=== PATIENT | female | born 1960 | race Caucasian/White ===

== ENCOUNTER 2025-03-04 06:45 | Outpatient (CLI) | payer MEDICARE, SELFPAY | END 2025-03-04 06:46 | disposition home or self-care (01) | LOC: AMB 03-05 11:00 | PROVIDERS: Visit Provider Family Medicine | DX: R10.9 Unspecified abdominal pain (principal) | CPT/HCPCS: A0425; A0433 ==

== ENCOUNTER 2025-03-04 07:14 | Emergency (ER) | payer MEDICARE, SELFPAY ==
[2025-03-04] VITALS (19 sets, daily range): BP systolic 127–167; BP diastolic 64–99; PULSE 91–108; RESP 16–18; TEMP 36.3; O2SAT 83–100; BMI 23.0
--- NOTE | 2025-03-04 07:36 | CRLHL7_ITS ---
For Patients: As a result of the Century Cures Act, medical imaging exams and procedure reports are released immediately into your electronic medical record. You may view this report before your referring provider. If you have questions, please contact your health care provider. INDICATION: Left lower quadrant abdominal pain COMPARISON: The most recent study of 10/19/2017. TECHNIQUE: CT examination of the abdomen and pelvis was performed following the uneventful intravenous administration of 64 cc of Isovue 370. Thin section axial images were obtained from the lung bases through the pubic symphysis. Oral contrast was not administered. Please note that all CT scans at this facility use dose modulation, iterative reconstruction, and/or weight-based dosing when appropriate to reduce radiation dose to as low as reasonably achievable. FINDINGS: LUNG BASES: Linear basilar opacities likely due to atelectasis or scarring.The heart size is normal at the lung bases. LIVER/BILIARY SYSTEM:Normal-sized liver. No focal mass. Surgically absent gallbladder. Mildly prominent biliary ductal system similar to the prior study likely reservoir phenomena from prior cholecystectomy. ADRENALS: Normal KIDNEYS, URETERS and BLADDER:Normal size kidneys. Left renal cyst. No hydronephrosis or hydroureter. The bladder is poorly seen due to streak artifact from a right hip arthroplasty and due to underdistention SPLEEN:Normal appearance. PANCREAS: Appears normal. RETROPERITONEUM and MESENTERY: There is no mass, adenopathy or aortic aneurysm. Atherosclerotic vascular calcification GASTROINTESTINAL SYSTEM: Thickening of the gastric corpus. There appears to be an abrupt transition between normal mucosa in the fundus and the area of thickening. See for example series 2, image 32. This could be neoplastic. Appropriate follow-up is advised. GI system otherwise remarkable for mild fecal retention and scattered diverticulosis. PELVIS: No mass, adenopathy or free fluid. OSSEOUS STRUCTURES and ABDOMINAL WALL: There is an age-appropriate appearance of the osseous structures.No significant abdominal wall defect. OTHER: No free fluid or free air. IMPRESSION: 1. Thickening of the gastric corpus. There appears to be abrupt transition between normal mucosa in the fundus and the Edwin thickening in the corpus. This could be neoplastic. Appropriate follow-up is advised. 2. Otherwise, no other potential specific visible cause for pain on this exam. 3. There are other incidental nonacute appearing findings as discussed in the body of the report. Please note that all CT scans at this facility use dose modulation, iterative reconstruction, and/or weight-based dosing when appropriate to reduce radiation dose to as low as reasonably achievable. Dictated by Camacho Lin MD @ 03/04/2025 8:56:24 AM (Electronically Signed)
--- NOTE | 2025-03-04 07:42 | ED_ITS ---
HPI - General Adult General Chief complaint: Abdominal Pain <Shannon Farah MD - Last Filed: 03/06/25 00:00> Stated complaint: abdominal pain <Shannon Farah MD - Last Filed: 03/06/25 00:00> Time Seen by Provider: 03/04/25 07:25 <Shannon Farah MD - Last Filed: 03/06/25 00:00> Source: patient and EMS <Shannon Farah MD - Last Filed: 03/06/25 00:00> Mode of arrival: EMS <Shannon Farah MD - Last Filed: 03/06/25 00:00> History of Present Illness HPI narrative: 64-year-old female presents the emergency department with diffuse abdominal pain. She is a suboptimal historian and is not very participatory of interview today. Patient was staying at her boyfriend's home, she typically lives and gets her medical care in [place]. She started having abdominal pain about 5 hours prior to presentation, initially thought she could be constipated as she is prone to this. She does take senna daily. She denies abdominal trauma. No vomiting. She had 4 very small bowel movements overnight that did not improve her symptoms. She thinks she might need an enema. On specific questioning, she does tell me that she had a bowel obstruction a couple of months ago and it sounds as though based on her description she was treated surgically. She cannot tell me the details of this encounter and it is not in our health system. We will have to attempt to obtain some records. No fever. No sick contacts. No diarrhea. No bloody stools. Denies a history of ischemic bowel, she is a nonsmoker. She did not try any pain medications prior to coming to the ED. in the ambulance, she was given Zofran and 150 mcg of fentanyl which she reports are not helping her pain. She reports her past medical history is notable for hypertension, depression. She cannot list her medications for me. We do have some scanned in from outside records but she will not confirm if these are correct or not. Denies excessive alcohol use, denies history of pancreatitis. She has had a prior cholecystectomy and appendectomy though she cannot give me details of those. Denies any pelvic surgeries. ROS was quite unreliable due to her poor participation but EMS did not note any other alarming symptoms. She told them that the pain was located in the left lower quadrant, she reports diffuse abdominal pain for me. Achy and constant. <Shannon Farah MD - Last Filed: 03/06/25 00:00> Related Data Home medications: Home Medications ?Medication ?Instructions ?Recorded ?Confirmed aluminum hydrox-magnesium carb 160 1 tab PO QID PRN heartburn 03/04/25 03/04/25 mg-105 mg chewable tablet (Acid Gone Antacid Extra Strength) aluminum-mag hydroxide-simethicone 15 ml PO Q6H PRN 03/04/25 03/04/25 200 mg-200 mg-20 mg/5 mL oral susp (Tania-Lanta) [id number]-dgiomspe 250 2 tab PO Q8H PRN 03/04/25 03/04/25 mg-250 mg-65 mg tablet (Excedrin Extra Strength) bisacodyl 10 mg rectal suppository 10 mg MA DAILY PRN constipation 03/04/25 03/04/25 epinephrine 0.3 mg/0.3 mL 0.3 ml subcut .prn anaphylaxis 03/04/25 03/04/25 injection, auto-injector famotidine 20 mg tablet 20 mg PO DAILY 03/04/25 03/04/25 fluoxetine 40 mg capsule 40 mg PO DAILY 03/04/25 03/04/25 hydrochlorothiazide 12.5 mg tablet 12.5 mg PO DAILY 03/04/25 03/04/25 melatonin 3 mg tablet 5 mg PO DAILY PRN insomnia 03/04/25 03/04/25 mometasone 0.1 % topical cream 1 applic topical BID 03/04/25 03/04/25 omeprazole 20 mg capsule,delayed 20 mg PO QPM 03/04/25 03/04/25 release sennosides 8.6 mg tablet (senna) 8.6 mg PO BID PRN constipation 03/04/25 03/04/25 Previous Rx's ?Medication ?Instructions ?Recorded omeprazole 40 mg capsule,delayed 40 mg PO DAILY #20 caps 03/04/25 release <Shannon Farah MD - Last Filed: 03/06/25 00:00> Allergies/adverse reactions: Allergies Allergy/AdvReac Type Severity Reaction Status Date / Time acetaminophen Allergy Unknown Verified 03/04/25 07:27 bee venom protein (honey bee) Allergy Unknown Verified 03/04/25 07:27 hydromorphone Allergy Unknown Verified 03/04/25 07:27 ibuprofen Allergy Unknown Verified 03/04/25 07:27 Influenza Virus Vaccines Allergy Unknown Verified 03/04/25 07:27 NSAIDS (Non-Steroidal Allergy Unknown Verified 03/04/25 07:27 Anti-Inflamma olanzapine Allergy Unknown Verified 03/04/25 07:27 <Shannon Farah MD - Last Filed: 03/06/25 00:00> [facility] Social History: Social History Smoking Status: Never smoker Do you use any of these nicotine containing products: None Second hand tobacco smoke exposure: No How often do you have a drink containing alcohol: 2-3 times a week How many standard drinks containing alcohol do you have on a typical day: 1 or 2 AUDIT-C Alcohol total score: 3 Non-prescribed substance use: denies use <Shannon Farah MD - Last Filed: 03/06/25 00:00> Exam Narrative: Exam Narrative: Constitutional: Appears well-developed and well-nourished. Alert. As a into the room the patient is loudly talking on a cordless phone. She politely and her conversation. Conversant. Non toxic. Says she is feeling much better after meds given by Dr. Farah. HENT: Head: Atraumatic. Nose: Nose normal. Mouth/Throat: Oral mucosa is clear and moist. no trismus. Pharynx normal. Tonsils symmetric. No tonsillar enlargement, erythema, or exudate. Eyes: Conjunctivae normal. EOM normal. Pupils equal, round, and reactive to light. No scleral icterus. Neck: Normal range of motion. Neck supple. No tracheal deviation present. Cardiovascular: Normal rate, regular rhythm. No gallop. No friction rub. No murmur heard. Symmetric radial artery pulses Pulmonary/Chest: Effort normal. No stridor. No respiratory distress. No wheezes. No rales. No rhonchi . No tenderness. Abdominal: Soft. Bowel sounds normal. No distension. No mass. No tenderness at this time. No rebound. No guarding. Musculoskeletal: RUE: Normal range of motion. No tenderness. No deformity LUE: Normal range of motion. No tenderness. No deformity RLE: Normal range of motion. No edema. No tenderness. No deformity LLE: Normal range of motion. No edema. No tenderness. No deformity Neurological: Alert and oriented to person, place, and time. Normal strength. CN II-VII intact. No sensory deficit. GCS eye subscore is 4. GCS verbal subscore is 5. GCS motor subscore is 6. Normal coordination Skin: Skin is warm and dry. No rash noted. No pallor. Normal capillary refill. Psychiatric: Normal mood. Normal affect. <Klaus Mccullough MD - Last Filed: 03/04/25 19:18> Const: Vital Signs, click to edit/add: Vital Signs - 24 hr 03/04/25 07:20 03/04/25 07:44 03/04/25 07:58 Temperature 97.3 F L Pulse Rate [Pulse Oximeter] 100 105 H Respiratory Rate 18 18 Blood Pressure [Le ft Upper Arm] 150/99 H 159/81 H Pulse Oximetry 96 98 96 Oxygen Delivery Me thod Room Air 03/04/25 08:00 03/04/25 08:02 03/04/25 08:41 Temperature Pulse Rate [Pulse Oximeter] 108 H Respiratory Rate 18 Blood Pressure [Le ft Upper Arm] 167/82 H Pulse Oximetry 99 97 94 Oxygen Delivery Me thod 03/04/25 09:00 03/04/25 09:02 03/04/25 09:30 Temperature Pulse Rate [Pulse Oximeter] 100 91 Respiratory Rate 16 16 Blood Pressure [Le ft Upper Arm] 153/64 H 134/70 Pulse Oximetry 100 98 99 Oxygen Delivery Me thod Room Air Room Air Room Air 03/04/25 09:32 03/04/25 10:00 03/04/25 10:02 Temperature 97.4 F L Pulse Rate [Pulse Oximeter] 103 H Respiratory Rate Blood Pressure [Le ft Upper Arm] 127/73 Pulse Oximetry 99 98 99 Oxygen Delivery Nc thod Room Air Room Air Room Air 03/04/25 10:30 03/04/25 10:32 03/04/25 11:00 Temperature Pulse Rate [Pulse Oximeter] 103 H 103 H Respiratory Rate 16 Blood Pressure [Le ft Upper Arm] 129/66 130/67 Pulse Oximetry 97 97 97 Oxygen Delivery Me thod Room Air Room Air Room Air 03/04/25 11:01 03/04/25 11:30 03/04/25 11:35 Temperature Pulse Rate [Pulse Oximeter] Respiratory Rate Blood Pressure [Le ft Upper Arm] Pulse Oximetry 98 97 83 L Oxygen Delivery Me thod 03/04/25 12:00 Temperature Pulse Rate [Pulse Oximeter] Respiratory Rate Blood Pressure [Le ft Upper Arm] Pulse Oximetry 98 Oxygen Delivery Me thod <Shannon Farah MD - Last Filed: 03/06/25 00:00> Vital Signs, click to edit/add: Vital Signs - 24 hr 03/04/25 07:20 03/04/25 07:44 03/04/25 07:58 Temperature 97.3 F L Pulse Rate [Pulse Oximeter] 100 105 H Respiratory Rate 18 18 Blood Pressure [Le ft Upper Arm] 150/99 H 159/81 H Pulse Oximetry 96 98 96 Oxygen Delivery Me thod Room Air 03/04/25 08:00 03/04/25 08:02 03/04/25 08:41 Temperature Pulse Rate [Pulse Oximeter] 108 H Respiratory Rate 18 Blood Pressure [Le ft Upper Arm] 167/82 H Pulse Oximetry 99 97 94 Oxygen Delivery Me thod 03/04/25 09:00 03/04/25 09:02 03/04/25 09:30 Temperature Pulse Rate [Pulse Oximeter] 100 91 Respiratory Rate 16 16 Blood Pressure [Le ft Upper Arm] 153/64 H 134/70 Pulse Oximetry 100 98 99 Oxygen Delivery Me thod Room Air Room Air Room Air 03/04/25 09:32 03/04/25 10:00 03/04/25 10:02 Temperature 97.4 F L Pulse Rate [Pulse Oximeter] 103 H Respiratory Rate Blood Pressure [Le ft Upper Arm] 127/73 Pulse Oximetry 99 98 99 Oxygen Delivery Me thod Room Air Room Air Room Air 03/04/25 10:30 03/04/25 10:32 03/04/25 11:00 Temperature Pulse Rate [Pulse Oximeter] 103 H 103 H Respiratory Rate 16 Blood Pressure [Le ft Upper Arm] 129/66 130/67 Pulse Oximetry 97 97 97 Oxygen Delivery Me thod Room Air Room Air Room Air 03/04/25 11:01 03/04/25 11:30 03/04/25 11:35 Temperature Pulse Rate [Pulse Oximeter] Respiratory Rate Blood Pressure [Le ft Upper Arm] Pulse Oximetry 98 97 83 L Oxygen Delivery Me thod 03/04/25 12:00 Temperature Pulse Rate [Pulse Oximeter] Respiratory Rate Blood Pressure [Le ft Upper Arm] Pulse Oximetry 98 Oxygen Delivery Me thod <Klaus Mccullough MD - Last Filed: 03/04/25 19:18> Documenting provider has reviewed patient's vital signs: yes <Shannon Farah MD - Last Filed: 03/06/25 00:00> Common normals: oriented x3 <Shannon Farah MD - Last Filed: 03/06/25 00:00> Other: Mild distress due to pain. Poor participation. <Shannon Faarh MD - Last Filed: 03/06/25 00:00> HENMT: Common normals: normocephalic, moist oral mucous membranes and oropharynx normal <Shannon Farah MD - Last Filed: 03/06/25 00:00> Head and scalp: normocephalic <Shannon Farah MD - Last Filed: 03/06/25 00:00> Face and sinus: normal facial exam <MD Spring Daugherty Last Filed: 03/06/25 00:00> Mouth: oral and palatal mucosa normal <MD Spring Daugherty Last Filed: 03/06/25 00:00> Eye: Common normals: conjunctivae normal <MD Spring Daugherty Last Filed: 03/06/25 00:00> General eye: normal appearance of both eyes <MD Spring Daugherty Last Filed: 03/06/25 00:00> Conjunctiva: conjunctiva(e) normal <MD Spring Daugherty Last Filed: 03/06/25 00:00> Neck & C-Spine: General: normal visual inspection <MD Spring Daugherty Last Filed: 03/06/25 00:00> Resp: Common normals: normal respiratory effort and clear to auscultation bilaterally <Shannon Farah MD - Last Filed: 03/06/25 00:00> Effort & inspection: able to speak in complete sentences <MD Spring Daugherty Last Filed: 03/06/25 00:00> Auscultation: clear to auscultation bilaterally <MD Spring Daugherty Last Filed: 03/06/25 00:00> Cardio: Common normals: regular rate, regular rhythm, S1 normal heart sound, S2 normal heart sound and no murmurs <MD Spring Daugherty Last Filed: 03/06/25 00:00> Rate: regular rate <MD Spring Daugherty Last Filed: 03/06/25 00:00> Rhythm: regular rhythm <MD Spring Daugherty Last Filed: 03/06/25 00:00> Heart sounds: S1 normal and S2 normal <MD Spring Daugherty Last Filed: 03/06/25 00:00> GI: Other: Abdomen seems mildly distended. Bowel sounds sound normoactive throughout to me though. She is diffusely tender but with no obvious rebound tenderness or guarding. No obvious mass. Liver and spleen do not seem enlarged. No recent surgical scars. <Shannon Farah MD - Last Filed: 03/06/25 00:00> : Common normals: no CVA tenderness <MD Spring Daugherty Last Filed: 03/06/25 00:00> Bladder/kidney exam: no CVA tenderness <MD Spring Daugherty Last Filed: 03/06/25 00:00> Back & Pelvis: Common normals: no CVA tenderness <MD Spring Daugherty Last Filed: 03/06/25 00:00> Extremity: Common normals: normal to inspection, normal capillary refill and no pedal edema <MD Spring Daugherty Last Filed: 03/06/25 00:00> Neuro: Common normals: oriented x3 and moves all extremities <MD Spring Daugherty Last Filed: 03/06/25 00:00> Speech: speech normal <MD Spring Daugherty Last Filed: 03/06/25 00:00> Psych: Insight: fair <Shannon Farah MD - Last Filed: 03/06/25 00:00> Judgement: fair <Shannon Farah MD - Last Filed: 03/06/25 00:00> Skin: Common normals: no rashes or lesions noted <Shannon Farah MD - Last Filed: 03/06/25 00:00> General skin exam: no rashes or lesions noted <Shannon Farah MD - Last Filed: 03/06/25 00:00> Course Course ED Course: 64-year-old female with abdominal pain, history of bowel obstructions, patient reporting suspected constipation. I am suspicious that this is more than a simple case of constipation as she has required so much narcotic medication and her symptoms are not improving. Full place peripheral IV, obtain typical intra-abdominal labs. 2 mg of morphine plus to q.2 hours ordered. Alina p.r.n.. Recommend CT of the abdomen and pelvis prior to proceeding with any type of bowel regimen. 500 mL of normal saline bolus x1. Anticipate handing over care to oncoming day shift partner. Will ask nursing team to try to locate her outside records. <Shannon Farah MD - Last Filed: 03/06/25 00:00> Vital Signs Vital signs: Initial Vital Signs Temperature 97.3 F L 03/04/25 07:20 Temperature Source Temporal Artery Scan 03/04/25 07:20 Pulse Rate 100 03/04/25 07:20 Respiratory Rate 18 03/04/25 07:20 Blood Pressure 150/99 H 03/04/25 07:20 Blood Pressure Mean 116 H 03/04/25 07:20 Blood Pressure Position Right Lateral 03/04/25 07:20 Pulse Oximetry 96 03/04/25 07:20 Oxygen Delivery Method Room Air 03/04/25 07:20 Vital Signs Temperature 97.3 F L 03/04/25 07:20 Pulse Rate 100 03/04/25 07:20 Respiratory Rate 18 03/04/25 07:20 Blood Pressure 150/99 H 03/04/25 07:20 Pulse Oximetry 96 03/04/25 07:20 Oxygen Delivery Method Room Air 03/04/25 07:20 Temperature 97.4 F L 03/04/25 10:00 Pulse Rate 103 H 03/04/25 11:00 Respiratory Rate 16 03/04/25 11:00 Blood Pressure 130/67 03/04/25 11:00 Pulse Oximetry 98 03/04/25 12:00 Oxygen Delivery Method Room Air 03/04/25 11:00 <Shannon Farah MD - Last Filed: 03/06/25 00:00> Initial Vital Signs Temperature 97.3 F L 03/04/25 07:20 Temperature Source Temporal Artery Scan 03/04/25 07:20 Pulse Rate 100 03/04/25 07:20 Respiratory Rate 18 03/04/25 07:20 Blood Pressure 150/99 H 03/04/25 07:20 Blood Pressure Mean 116 H 03/04/25 07:20 Blood Pressure Position Right Lateral 03/04/25 07:20 Pulse Oximetry 96 03/04/25 07:20 Oxygen Delivery Method Room Air 03/04/25 07:20 Vital Signs Temperature 97.3 F L 03/04/25 07:20 Pulse Rate 100 03/04/25 07:20 Respiratory Rate 18 03/04/25 07:20 Blood Pressure 150/99 H 03/04/25 07:20 Pulse Oximetry 96 03/04/25 07:20 Oxygen Delivery Method Room Air 03/04/25 07:20 Temperature 97.4 F L 03/04/25 10:00 Pulse Rate 103 H 03/04/25 11:00 Respiratory Rate 16 03/04/25 11:00 Blood Pressure 130/67 03/04/25 11:00 Pulse Oximetry 98 03/04/25 12:00 Oxygen Delivery Method Room Air 03/04/25 11:00 <Klaus Mccullough MD - Last Filed: 03/04/25 19:18> Medications Administered Medications: Discontinued Medications Generic Name Dose Route Start Last Admin Trade Name Freq PRN Reason Stop Dose Admin Sodium Chloride 500 mls @ 500 mls/hr 03/04/25 07:36 03/04/25 11:00 0.9 % Sodium Chloride 500 Ml IV 03/04/25 08:35 500 mls/hr .Q1H ONE Infusion Morphine Sulfate 2 mg 03/04/25 07:38 03/04/25 07:49 Morphine 2 Mg/Ml Inj IVP 03/04/25 07:39 2 mg ONCE ONE Administration <Shannon Farah MD - Last Filed: 03/06/25 00:00> Discontinued Medications Generic Name Dose Route Start Last Admin Trade Name Lianne PRN Reason Stop Dose Admin Sodium Chloride 500 mls @ 500 mls/hr 03/04/25 07:36 03/04/25 11:00 0.9 % Sodium Chloride 500 Ml IV 03/04/25 08:35 500 mls/hr .Q1H ONE Infusion Morphine Sulfate 2 mg 03/04/25 07:38 03/04/25 07:49 Morphine 2 Mg/Ml Inj IVP 03/04/25 07:39 2 mg ONCE ONE Administration <Klaus Mccullough MD - Last Filed: 03/04/25 19:18> Medical Decision Making MDM Narrative Medical decision making narrative: Presented to the Emergency Department with left-sided/left upper quadrant abdominal pain. The differential diagnosis of abdominal pain includes: Appendicitis, Bowel Obstruction, Ulcer, Ischemia, Cholecystitis, Diverticulitis, Pancreatitis, UTI, kidney stone, Enteritis/Colitis, amongst many other etiologies. She does have a history of frequent visits to the [place] ER for abdominal pain and actually has a treatment plan for when she arrives in [place]. Being on aware of this she had pain meds and imaging ordered by Dr. Farah on the shift mechanic. Laboratory testing does not reveal a cause for the patient's pain. CT imaging does not show any emergent surgical finding such as bowel obstruction, diverticulitis, perforation, abscess, appendicitis. However CT does show evidence for wall thickening of the stomach. Differential this would include gastritis, ulcer, as well as malignancy, among others. Discussed this with the patient in detail and she will start on a PPI beginning today and I recommend close outpatient follow-up with her doctors in [place] to arrange an endoscopy to be done within the next couple of weeks. The exact etiology of the abdominal pain is not clear at this time, however suspect possible gastritis.. No life threatening cause or need for emergent surgery or hospital admission is detected today. The patient was advised that if symptoms do not completely resolve within another 12-24 hours re-evaluation with primary care or return to the ED is indicated. The patient also understands that if they worsen, they should return to the ER right away. I discussed the uncertainty about the diagnosis and answered the patient's questions. Abdominal pain return precautions discussed. <Klaus Mccullough MD - Last Filed: 03/04/25 19:18> Lab Data Lab results reviewed: Yes I reviewed the patient's lab results <Shannon Farah MD - Last Filed: 03/06/25 00:00> Lab results narrative: Labs quite reassuring. No significant leukocytosis, elevation of CRP, anemia, electrolyte abnormalities, renal impairment, pancreatitis or liver enzyme abnormality. <Shannon Farah MD - Last Filed: 03/06/25 00:00> Labs: Lab Results 03/04/25 Range/Units 07:53 WBC 7.62 (4.50-11.00) K/uL RBC 4.08 (4.00-5.20) m/uL Hgb 12.8 (12.0-16.0) gm/dL Hct 37.1 (33.0-51.0) % MCV 91 (80-100) fL MCH 31 (26-34) pg MCHC 35 (32-36) gm/dL RDW Coeff of Adam 12.7 (11.5-15.5) % Plt Count 260 (140-440) K/uL Neut % (Auto) 90.1 H (42.0-72.0) % Lymph % (Auto) 6.2 L (20-44) % [place] % (Auto) 2.4 (0.0-11.0) % Eos % (Auto) 0.7 (0.0-7.0) % Baso % (Auto) 0.3 (0.0-3.0) % Neut # (Auto) 6.90 (1.7-7.0) K/uL Lymph # (Auto) 0.50 L (0.90-2.90) K/uL [place] # (Auto) 0.20 (0.00-0.90) K/UL Eos # (Auto) 0.05 (0.00-0.50) K/uL Baso # (Auto) 0.02 (0.00-0.30) K/uL Abs Immat Gran (auto) 0.02 (0.00-0.30) K/uL Imm/Tot Granulo (auto) 0.3 % Sodium 138 (135-149) mmol/L Potassium 4.0 (3.6-5.1) mmol/L Chloride 104 (96-114) mmol/L Carbon Dioxide 20 (20-32) mmol/L Anion Gap 14 (7-15) mEq/L BUN 12 (7-30) mg/dL Creatinine 0.7 (0.5-1.5) mg/dL Estimated Creat Clear 48.25 Estimated GFR 98 ml/min Glucose 104 (60-115) mg/dL Lactate 1.2 (0.5-1.9) mmol/L Calcium 9.1 (8.4-10.6) mg/dL Total Bilirubin 0.4 (0.1-1.5) mg/dL AST 35 (12-35) U/L ALT 17 (4-35) U/L Alkaline Phosphatase 78 (40-150) U/L C-Reactive Protein < 0.5 L (0.5-1.0) mg/dL Total Protein 7.5 (6.0-8.3) g/dL Albumin 4.6 (3.3-5.0) g/dL Lipase 149 (23-300) U/L <Shannon Farah MD - Last Filed: 03/06/25 00:00> Lab Results 03/04/25 Range/Units 07:53 WBC 7.62 (4.50-11.00) K/uL RBC 4.08 (4.00-5.20) m/uL Hgb 12.8 (12.0-16.0) gm/dL Hct 37.1 (33.0-51.0) % MCV 91 (80-100) fL MCH 31 (26-34) pg MCHC 35 (32-36) gm/dL RDW Coeff of Adam 12.7 (11.5-15.5) % Plt Count 260 (140-440) K/uL Neut % (Auto) 90.1 H (42.0-72.0) % Lymph % (Auto) 6.2 L (20-44) % [place] % (Auto) 2.4 (0.0-11.0) % Eos % (Auto) 0.7 (0.0-7.0) % Baso % (Auto) 0.3 (0.0-3.0) % Neut # (Auto) 6.90 (1.7-7.0) K/uL Lymph # (Auto) 0.50 L (0.90-2.90) K/uL [place] # (Auto) 0.20 (0.00-0.90) K/UL Eos # (Auto) 0.05 (0.00-0.50) K/uL Baso # (Auto) 0.02 (0.00-0.30) K/uL Abs Immat Gran (auto) 0.02 (0.00-0.30) K/uL Imm/Tot Granulo (auto) 0.3 % Sodium 138 (135-149) mmol/L Potassium 4.0 (3.6-5.1) mmol/L Chloride 104 (96-114) mmol/L Carbon Dioxide 20 (20-32) mmol/L Anion Gap 14 (7-15) mEq/L BUN 12 (7-30) mg/dL Creatinine 0.7 (0.5-1.5) mg/dL Estimated Creat Clear 48.25 Estimated GFR 98 ml/min Glucose 104 (60-115) mg/dL Lactate 1.2 (0.5-1.9) mmol/L Calcium 9.1 (8.4-10.6) mg/dL Total Bilirubin 0.4 (0.1-1.5) mg/dL AST 35 (12-35) U/L ALT 17 (4-35) U/L Alkaline Phosphatase 78 (40-150) U/L C-Reactive Protein < 0.5 L (0.5-1.0) mg/dL Total Protein 7.5 (6.0-8.3) g/dL Albumin 4.6 (3.3-5.0) g/dL Lipase 149 (23-300) U/L <Klaus Mccullough MD - Last Filed: 03/04/25 19:18> Imaging Data CT scan - abdomen: Attestation: I have reviewed the pertinent imaging results. <Shannon Farah MD - Last Filed: 03/06/25 00:00> My impression: No obvious obstruction, perforation or large mass. Does have some mild constipation. <Shannon Farah MD - Last Filed: 03/06/25 00:00> Radiologist's impression: IMPRESSION: 1. Thickening of the gastric corpus. There appears to be abrupt transition between normal mucosa in the fundus and the Edwin thickening in the corpus. This could be neoplastic. Appropriate follow-up is advised. 2. Otherwise, no other potential specific visible cause for pain on this exam. 3. There are other incidental nonacute appearing findings as discussed in the body of the report. Please note that all CT scans at this facility use dose modulation, iterative reconstruction, and/or weight-based dosing when appropriate to reduce radiation dose to as low as reasonably achievable. Dictated by Camacho Lin MD @ 03/04/2025 8:56:24 AM <Shannon Farah MD - Last Filed: 03/06/25 00:00> Discharge Plan Discharge Clinical Impression: Abdominal pain <Shannon Farah MD - Last Filed: 03/06/25 00:00> Patient Disposition: Home, Self-Care <Shannon Farah MD - Last Filed: 03/06/25 00:00> Condition: Stable <Shannon Farah MD - Last Filed: 03/06/25 00:00> Instructions: Gastritis (DC), Diet for Stomach Ulcers and Gastritis (ED), Abdominal Pain (ED) <Shannon Farah MD - Last Filed: 03/06/25 00:00> Additional Instructions: As we discussed, continue on your regular medications including your laxatives and stool softeners. Please start on the new medication for stomach acid (omeprazole). Take it every day. It is very important for you to follow-up with your regular doctor within 5-7 days for a recheck. Tell your doctor you had a CT scan here in the ER in [place]. Tell your doctor that the CT scan shows thickening of the wall of your stomach. Your doctor can set you up for an endoscopy (camera down into your stomach) to see why the wall of your stomach is thickened. It could be thickened because of acid dickey and ulcers. However, we need to make sure there is no cancer. <Shannon Farah MD - Last Filed: 03/06/25 00:00> Prescriptions: New omeprazole 40 mg capsule,delayed release(DR/EC) 40 mg PO DAILY Qty: 20 2RF No Action sennosides [senna] 8.6 mg tablet 8.6 mg PO BID PRN (Reason: constipation) omeprazole 20 mg capsule,delayed release(DR/EC) 20 mg PO QPM mometasone 0.1 % cream 1 applic topical BID melatonin 3 mg tablet 5 mg PO DAILY PRN (Reason: insomnia) fluoxetine 40 mg capsule 40 mg PO DAILY famotidine 20 mg tablet 20 mg PO DAILY epinephrine 0.3 mg/0.3 mL auto-injector 0.3 ml subcut .prn hydrochlorothiazide 12.5 mg tablet 12.5 mg PO DAILY bisacodyl 10 mg suppository 10 mg MA DAILY PRN (Reason: constipation) alum-mag hydroxide-simeth [Tania-Lanta] 200-200-20 mg/5 mL suspension 15 ml PO Q6H PRN Acid Gone Antacid E.Strength 160-105 mg tablet,chewable 1 tab PO QID PRN (Reason: heartburn) Excedrin Extra Strength 250-250-65 mg tablet 2 tab PO Q8H PRN <Shannon Farah MD - Last Filed: 03/06/25 00:00> Follow Up/Referrals: Provider,Not a Local [Primary Care Provider] - <Shannon Farah MD - Last Filed: 03/06/25 00:00> Stand Alone Forms: MyHealth Info Instructions <Shannon Farah MD - Last Filed: 03/06/25 00:00>
[2025-03-04] MEDS: MORPHINE 2 MG/ML inj IVP (07:49)
[2025-03-04] MEDS: 0.9 % SODIUM CHLORIDE 500 ML 500 ML IV (07:50)
[2025-03-04 07:55] LABS: Lactate* 1.2 mmol/L (0.5-1.9)
[2025-03-04 07:57] LABS: Basophils Absolute Auto 0.02 K/uL (0.00-0.30); Basophils Percent Auto 0.3 % (0.0-3.0); Eosinophils Absolute Auto 0.05 K/uL (0.00-0.50); Eosinophils Percent Auto 0.7 % (0.0-7.0); Hematocrit 37.1 % (33.0-51.0); Hemoglobin* 12.8 gm/dL (12.0-16.0); Immature Granulocytes Abs Auto 0.02 K/uL (0.00-0.30); Immature Granulocytes Pct Auto 0.3 %; Lymphocytes Percent Auto 6.2 % (20-44); Mean Corpuscular HGB Conc 35 gm/dL (32-36); Mean Corpuscular Hemoglobin 31 pg (26-34); Mean Corpuscular Volume 91 fL (80-100); Monocytes Percent Auto 2.4 % (0.0-11.0); Neutrophils Percent Auto 90.1 % (42.0-72.0); Platelet Count* 260 K/uL (140-440); RDW Coefficient of Variation % 12.7 % (11.5-15.5); Red Blood Count 4.08 m/uL (4.00-5.20); White Blood Count* 7.62 K/uL (4.50-11.00)
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
[2025-03-04 08:02] LABS: Slide Review Reflex No
[2025-03-04 08:10] LABS: Albumin* 4.6 g/dL (3.3-5.0); Chloride* 104 mmol/L (96-114); Sodium* 138 mmol/L (135-149)
[2025-03-04 08:13] LABS: Alanine Aminotransferase* 17 U/L (4-35); Alkaline Phosphatase* 78 U/L (40-150); Anion Gap 14 mEq/L (7-15); Aspartate Amino Transferase* 35 U/L (12-35); Bilirubin Total* 0.4 mg/dL (0.1-1.5); Blood Urea Nitrogen* 12 mg/dL (7-30); Carbon Dioxide* 20 mmol/L (20-32); Creatinine* 0.7 mg/dL (0.5-1.5); Est. Creatinine Clearance* 48.25; Estimated Glomerular Filt Rate 98 ml/min; Lipase* 149 U/L (23-300); Total Protein* 7.5 g/dL (6.0-8.3)
[2025-03-04 08:14] LABS: Calcium* 9.1 mg/dL (8.4-10.6); Glucose* 104 mg/dL (60-115)
[2025-03-04 08:16] LABS: C Reactive Protein* < 0.5 mg/dL (0.5-1.0)
--- OUTSIDE RECORDS SUMMARY | 2025-03-04 09:08 | XMS_ITS ---
Author Organization [facility] [place] Care Team Providers Care Conservation Coordinator Name Role Phone Carmella Clemente Unavailable Unavailable Andres Monzon Unavailable Unavailable Allergies and adverse reactions Code CodeSystem Substance Reaction Severity StartDate Concern Status Tylenol Unknown Unknown active 5640 RXNORM Ibuprofen Unknown Unknown active 3423 RXNORM Hydromorphone Unknown Unknown active Care Team Name Role Address Phone Organization Dates Andres Monzon PCP [place] [address], [address], [place], [address], [place] (Office): [facility] 01/19/2017 - 02/01/2017 Carmella Clemente Attending Physician [place] [address], [place], [address], [place] (Office): : [facility] 01/19/2017 - 02/01/2017 Immunizations Immunization Status Vaccine Details Vaccine Code CodeSystem Date Notes TB 2 Step Mantoux Skin Test completed tuberculin skin test; unspecified formulation lotNumber: [id number] expiry: 09/07/2018 Mfg: sanofi pasteur Given 0.1 ml Left Forearm intradermally Step 1 of Multi-step with next step required 98 CVX created date: 01/24/2017 consent date: 01/25/2017 administer ed date: 01/20/2017 Educated by Miriam Jacobs RN on 01/20/2017 Consent received at facility on 01-20 Custom Influenza cancelled created date: 01/21/2017 consent date: 01/21/2017 PPSV23, Pneumovax 23 completed lotNumber: [id number] expiry: 04/01/2018 Mfg: merchsharp Given 0.5 ml Left Deltoid intramuscularly created date: 01/24/2017 consent date: 01/24/2017 administer ed date: 01/24/2017 Educated by Isha Mejia on 01/24/2017 Mental Status Section Date Assessment Total Score Description 02/01/2017 CAM 0 No delirium ind icated 01/26/2017 BIMS 13 cognitively int act CAM 0 No delirium ind icated PHQ-9 03 minimal depress ion Problems Problem # Description Date of onset Resolved Date Code CodeSystem Concern Status 1 CONSTIPATION, UNSPECIFIED 02/02/[address] active 2 INFLUENZA DUE TO OTHER IDENTIFIED INFLUENZA VIRUS WITH OTHER RESPIRATORY MANIFESTATIONS 02/01/[address] active 3 ANEMIA, UNSPECIFIED 01/31/[address] active 4 AFTERCARE FOLLOWING JOINT REPLACEMENT SURGERY 01/20/[address] active 5 DIFFICULTY IN WALKING, NOT ELSEWHERE CLASSIFIED 01/20/[address] active 6 GASTRO-ESOPHAGEAL REFLUX DISEASE WITHOUT ESOPHAGITIS 01/20/[address] active 7 IRRITABLE BOWEL SYNDROME, UNSPECIFIED 01/20/[address] active 8 MAJOR DEPRESSIVE DISORDER, SINGLE EPISODE, UNSPECIFIED 01/20/[address] active 9 MUSCLE WEAKNESS (GENERALIZED) 01/20/[address] active 10 NICOTINE DEPENDENCE, CIGARETTES, UNCOMPLICATED 01/20/[address] active 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 01/20/[address] active 12 PNEUMONIA, UNSPECIFIED ORGANISM 01/20/20 17 01/26/[address] completed 13 PRESENCE OF RIGHT ARTIFICIAL HIP JOINT 01/20/[address] active Reason for Referral No Reasons for Referral Entered Social History Social History Observation Description Start Date End Date Code Code System Current Smoking Status Ex-smoker Not available Not available 7595175 SNOMED CT Sex Assigned At Female 1960 12069-3 [facility] Vital Signs Code Code System Vitals Name Values and Units Timing Information 68568-2 [facility] Pain Level Value=7.0 02/01/2017 8310-5 [facility] Body Temperature Value=96.8 Units= F 02/01/2017 9279-1 [facility] Respiratory Rate Value=18.0 Units=/m in 02/01/2017 8462-4 [facility] Blood Pressure-Diastolic Value=68 Un its=mmHg 02/01/2017 8480-6 [facility] Blood Pressure-Systolic Hfqwz=913 Un its=mmHg 02/01/2017 8867-4 [facility] Heart rate Value=73.0 Units=/min 88128-5 [facility] O2 % BldC Oximetry Value=98.0 Units= % 02/01/2017 63146-8 [facility] Weight Fjpsx=182.5 Units=Lbs 8302-2 [facility] Height Value=64.0 Units=Inches 01/20/2017
== END 2025-03-04 12:30 | disposition home or self-care (01) ==
PROVIDERS: Family Medicine; Emergency Provider Emergency Medicine
DX: R10.32 Left lower quadrant pain (principal)
CPT/HCPCS: 36415; 74177; 80053; 83605; 83690; 85025; 86140; 96374; 99283; 99284; J2270; J7030; Q9967

== ENCOUNTER 2025-07-02 07:13 | Emergency (ER) | payer MEDICARE, SELFPAY ==
--- OUTSIDE RECORDS SUMMARY | 2025-07-02 07:16 | XMS_ITS ---
Author Organization [facility] Care Team Providers Care Host/Hostess Ground Name Role Phone Chyna Carmella Unavailable Unavailable Andres Monzon Unavailable Unavailable Allergies and adverse reactions Code CodeSystem Substance Reaction Severity StartDate Concern Status Tylenol Unknown Unknown active 5640 RXNORM Ibuprofen Unknown Unknown active 3423 RXNORM Hydromorphone Unknown Unknown active Care Team Name Role Address Phone Organization Dates Andres Monzon PCP [facility] [address] [facility], [address], [place], [address], [place] (Office): [facility] 01/19/2017 - 02/01/2017 Carmella Clemente [facility] [address] [facility] [address], [place], [facility], [place] States (Office): : [facility] 01/19/2017 - 02/01/2017 Immunizations Immunization Status Vaccine Details Vaccine Code CodeSystem Date Notes TB 2 Step Mantoux Skin Test completed tuberculin skin test; unspecified formulation lotNumber: [id number] expiry: 09/07/2018 Mfg: [employer] Given 0.1 ml Left Forearm intradermally Step 1 of Multi-step with next step required 98 CVX created date: 01/24/2017 consent date: 01/25/2017 administer ed date: 01/20/2017 Educated by Miriam Jacobs RN on 01/20/2017 Consent received at facility on 01-20 Pneumovax 23 completed pneumococcal polysaccharide vaccine, 23 valent lotNumber: [id number] expiry: 04/01/2018 Mfg: [employer]sharp Given 0.5 ml Left Deltoid intramuscularly 33 CVX created date: 01/24/2017 consent date: 01/24/2017 administer ed date: 01/24/2017 Educated by Isha Mejia on 01/24/2017 Custom Influenza cancelled created date: 01/21/2017 consent date: 01/21/2017 Mental Status Section Date Assessment Total Score Description 02/01/2017 CAM 0 No delirium ind icated 01/26/2017 BIMS 13 cognitively int act CAM 0 No delirium ind icated PHQ-9 03 minimal depress ion Problems Problem # Description Date of onset Resolved Date Code CodeSystem Concern Status 1 CONSTIPATION, UNSPECIFIED 02/02/[address] active 2 INFLUENZA DUE TO OTHER IDENTIFIED INFLUENZA VIRUS WITH OTHER RESPIRATORY MANIFESTATIONS 02/01/[address] active 3 ANEMIA, UNSPECIFIED 01/31/[address] active 4 AFTERCARE FOLLOWING JOINT REPLACEMENT SURGERY 01/20/[address] active 5 DIFFICULTY IN WALKING, NOT ELSEWHERE CLASSIFIED 01/20/[address] active 6 GASTRO-ESOPHAGEAL REFLUX DISEASE WITHOUT ESOPHAGITIS 01/20/[address] active 7 IRRITABLE BOWEL SYNDROME, UNSPECIFIED 01/20/[address] active 8 MAJOR DEPRESSIVE DISORDER, SINGLE EPISODE, UNSPECIFIED 01/20/[address] active 9 MUSCLE WEAKNESS (GENERALIZED) 01/20/[address] active 10 NICOTINE DEPENDENCE, CIGARETTES, UNCOMPLICATED 01/20/[address] active 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 01/20/[address] active 12 PNEUMONIA, UNSPECIFIED ORGANISM 01/20/20 17 01/26/[address] completed 13 PRESENCE OF RIGHT ARTIFICIAL HIP JOINT 01/20/[address] active Reason for Referral No Reasons for Referral Entered Social History Social History Observation Description Start Date End Date Code Code System Current Smoking Status Ex-smoker Not available Not available 4057973 SNOMED CT Sex Assigned At Female 1960 07614-9 [facility] Gender Identity Vital Signs Code Code System Vitals Name Values and Units Timing Information 67121-8 [facility] Pain Level Value=7.0 02/01/2017 8310-5 [facility] Body Temperature Value=96.8 Units= F 02/01/2017 9279-1 [facility] Respiratory Rate Value=18.0 Units=/m in 02/01/2017 8462-4 [facility] Blood Pressure-Diastolic Value=68 Un its=mmHg 02/01/2017 8480-6 [facility] Blood Pressure-Systolic Ulnth=934 Un its=mmHg 02/01/2017 8867-4 [facility] Heart rate Value=73.0 Units=/min 01447-0 [facility] O2 % BldC Oximetry Value=98.0 Units= % 02/01/2017 01947-3 [facility] Weight Vyaqb=943.5 Units=Lbs 8302-2 [facility] Height Value=64.0 Units=Inches 01/20/2017
--- NOTE | 2025-07-02 07:17 | ED.ABDPAIN ---
HPI - Abdominal Pain General Time Seen by Provider: 07:28 <Jw Malloy MD - Last Filed: 07/07/25 15:57> Date Seen: 07/02/25 <Jw Malloy MD - Last Filed: 07/07/25 15:57> Chief Complaint: Abdominal Pain <Jw Malloy MD - Last Filed: 07/07/25 15:57> Stated Complaint: abdominal pain <Jw Malloy MD - Last Filed: 07/07/25 15:57> Time Seen by Provider: 07/02/25 07:28 <Jw Malloy MD - Last Filed: 07/07/25 15:57> Source: patient <Jw Malloy MD - Last Filed: 07/07/25 15:57> Mode of arrival: ambulatory <Jw Malloy MD - Last Filed: 07/07/25 15:57> Limitations: no limitations <Jw Malloy MD - Last Filed: 07/07/25 15:57> History of Present Illness HPI narrative: 64-year-old female who presents today with abdominal pain. Patient reports nausea and vomiting with some diarrhea yesterday, diffuse abdominal pain today. Denies blood in the stools. Has not taken anything for her symptoms. Denies chest pain, shortness of breath, fever, chills, urinary symptoms. No pain in the back. <Jw Malloy MD - Last Filed: 07/07/25 15:57> Related Data Home Medications: Home Medications ?Medication ?Instructions ?Recorded ?Confirmed aluminum hydrox-magnesium carb 160 1 tab PO QID PRN heartburn 03/04/25 03/04/25 mg-105 mg chewable tablet (Acid Gone Antacid Extra Strength) aluminum-mag hydroxide-simethicone 15 ml PO Q6H PRN 03/04/25 03/04/25 200 mg-200 mg-20 mg/5 mL oral susp (Tania-Lanta) fxynmle-tliupywlkvcmn-lcckrmuy 250 2 tab PO Q8H PRN 03/04/25 03/04/25 mg-250 mg-65 mg tablet (Excedrin Extra Strength) bisacodyl 10 mg rectal suppository 10 mg MO DAILY PRN constipation 03/04/25 03/04/25 epinephrine 0.3 mg/0.3 mL 0.3 ml subcut .prn anaphylaxis 03/04/25 03/04/25 injection, auto-injector famotidine 20 mg tablet 20 mg PO DAILY 03/04/25 03/04/25 fluoxetine 40 mg capsule 40 mg PO DAILY 03/04/25 03/04/25 hydrochlorothiazide 12.5 mg tablet 12.5 mg PO DAILY 03/04/25 03/04/25 melatonin 3 mg tablet 5 mg PO DAILY PRN insomnia 03/04/25 03/04/25 mometasone 0.1 % topical cream 1 applic topical BID 03/04/25 03/04/25 omeprazole 20 mg capsule,delayed 20 mg PO QPM 03/04/25 03/04/25 release sennosides 8.6 mg tablet (senna) 8.6 mg PO BID PRN constipation 03/04/25 03/04/25 Previous Rx's ?Medication ?Instructions ?Recorded omeprazole 40 mg capsule,delayed 40 mg PO DAILY #20 caps 03/04/25 release <Jw Malloy MD - Last Filed: 07/07/25 15:57> Allergies/Adverse Reactions: Allergies Allergy/AdvReac Type Severity Reaction Status Date / Time acetaminophen Allergy Unknown Verified 03/04/25 07:27 bee venom protein (honey bee) Allergy Unknown Verified 03/04/25 07:27 hydromorphone Allergy Unknown Verified 03/04/25 07:27 ibuprofen Allergy Unknown Verified 03/04/25 07:27 Influenza Virus Vaccines Allergy Unknown Verified 03/04/25 07:27 NSAIDS (Non-Steroidal Allergy Unknown Verified 03/04/25 07:27 Anti-Inflamma olanzapine Allergy Unknown Verified 03/04/25 07:27 <Jw Malloy MD - Last Filed: 07/07/25 15:57> [facility] Social History: Social History Smoking Status: Never smoker Do you use any of these nicotine containing products: None Second hand tobacco smoke exposure: No How often do you have a drink containing alcohol: monthly or less How many standard drinks containing alcohol do you have on a typical day: 1 or 2 AUDIT-C Alcohol total score: 1 Non-prescribed substance use: denies use service: No <Jw Malloy MD - Last Filed: 07/07/25 15:57> Exam Narrative: Exam Narrative: General: Well-developed and well-nourished, no acute distress Head: Atraumatic and normocephalic Eyes: Pupils are equal reactive, extraocular motions intact, conjunctiva clear ENT: External nose and ears are normal, posterior pharynx without erythema or exudate Neck: No midline cervical tenderness, full spontaneous range of motion the neck, trachea midline, no adenopathy Heart: Regular rate and rhythm no murmurs or thrills Lungs: Clear to auscultation bilaterally without wheezes or crackles Abdomen: Soft, nontender, nondistended with active bowel sounds Musculoskeletal: No tenderness, deformity, or edema Neurologic: Awake, alert, and oriented x3, no gross focal neurologic deficits, cranial nerves intact as tested Psych: Mood and affect are appropriate Skin: No rashes <Jw Malloy MD - Last Filed: 07/07/25 15:57> Const: Vital Signs, click to edit/add: Vital Signs - 24 hr 07/02/25 07:25 07/02/25 07:32 Temperature 97.8 F 97.8 F Pulse Rate [Right Radial] 86 86 Respiratory Rate 18 18 Blood Pressure [Ri ght Upper Arm] 178/87 H 178/87 H Pulse Oximetry 100 100 Oxygen Delivery Me thod Room Air Room Air <Jw Malloy MD - Last Filed: 07/07/25 15:57> Vital Signs, click to edit/add: Vital Signs - 24 hr 07/02/25 07:25 07/02/25 07:32 Temperature 97.8 F 97.8 F Pulse Rate [Right Radial] 86 86 Respiratory Rate 18 18 Blood Pressure [Ri ght Upper Arm] 178/87 H 178/87 H Pulse Oximetry 100 100 Oxygen Delivery Me thod Room Air Room Air <Jesus Chao MD - Last Filed: 07/02/25 08:54> Course Course ED Course: Reviewed prior emergency department visit from March 04 when patient was seen for abdominal pain, at that time poor history of generalized versus left lower quadrant abdominal pain, patient does have a history of small-bowel obstruction. Patient does have a unique treatment plan [place], recommended avoid CTs in opiates for new meds prior presentations for abdominal pain. Also reviewed prior emergency department visit from May 17 which was for abdominal pain noted history of chronic abdominal pain. Patient presents today with generalized abdominal pain. On exam, minimal tenderness, hyperactive bowel sounds, vital is stable. Labs ordered, will defer imaging for now. Will order Pepcid and GI cocktail based on prior care plan from [facility] system. Signout to oncoming provider <Jw Malloy MD - Last Filed: 07/07/25 15:57> Vital Signs Vital signs: Initial Vital Signs Temperature 97.8 F 07/02/25 07:25 Temperature Source Temporal Artery Scan 07/02/25 07:25 Pulse Rate 86 07/02/25 07:25 Pulse Rhythm Regular 07/02/25 07:25 Pulse Strength 0+ Absent 07/02/25 07:25 Respiratory Rate 18 07/02/25 07:25 Blood Pressure 178/87 H 07/02/25 07:25 Blood Pressure Mean 117 H 07/02/25 07:25 Blood Pressure Position Supine 07/02/25 07:25 Pulse Oximetry 100 07/02/25 07:25 Oxygen Delivery Method Room Air 07/02/25 07:25 Vital Signs Temperature 97.8 F 07/02/25 07:25 Pulse Rate 86 07/02/25 07:25 Respiratory Rate 18 07/02/25 07:25 Blood Pressure 178/87 H 07/02/25 07:25 Pulse Oximetry 100 07/02/25 07:25 Oxygen Delivery Method Room Air 07/02/25 07:25 Temperature 98.7 F 07/02/25 09:11 Pulse Rate 85 07/02/25 09:11 Respiratory Rate 18 07/02/25 09:11 Blood Pressure 161/79 H 07/02/25 09:11 Pulse Oximetry 100 07/02/25 07:32 Oxygen Delivery Method Room Air 07/02/25 07:32 <Jw Malloy MD - Last Filed: 07/07/25 15:57> Initial Vital Signs Temperature 97.8 F 07/02/25 07:25 Temperature Source Temporal Artery Scan 07/02/25 07:25 Pulse Rate 86 07/02/25 07:25 Pulse Rhythm Regular 07/02/25 07:25 Pulse Strength 0+ Absent 07/02/25 07:25 Respiratory Rate 18 07/02/25 07:25 Blood Pressure 178/87 H 07/02/25 07:25 Blood Pressure Mean 117 H 07/02/25 07:25 Blood Pressure Position Supine 07/02/25 07:25 Pulse Oximetry 100 07/02/25 07:25 Oxygen Delivery Method Room Air 07/02/25 07:25 Vital Signs Temperature 97.8 F 07/02/25 07:25 Pulse Rate 86 07/02/25 07:25 Respiratory Rate 18 07/02/25 07:25 Blood Pressure 178/87 H 07/02/25 07:25 Pulse Oximetry 100 07/02/25 07:25 Oxygen Delivery Method Room Air 07/02/25 07:25 Temperature 98.7 F 07/02/25 09:11 Pulse Rate 85 07/02/25 09:11 Respiratory Rate 18 07/02/25 09:11 Blood Pressure 161/79 H 07/02/25 09:11 Pulse Oximetry 100 07/02/25 07:32 Oxygen Delivery Method Room Air 07/02/25 07:32 <Jesus Chao MD - Last Filed: 07/02/25 08:54> Medications Administered Medications: Discontinued Medications Generic Name Dose Route Start Last Admin Trade Name Freq PRN Reason Stop Dose Admin Famotidine 20 mg 07/02/25 07:47 07/02/25 08:17 Famotidine 10 Mg/Ml Inj IVP 07/02/25 07:48 20 mg ONCE ONE Administration Lidocaine/Aluminum/Magnesium/Simeth 30 ml 07/02/25 07:47 07/02/25 08:17 Gi Cocktail (Visc Lido/Antacid) 30 Ml PO 07/02/25 07:48 30 ml ONCE ONE Administration <Jw Malloy MD - Last Filed: 07/07/25 15:57> Discontinued Medications Generic Name Dose Route Start Last Admin Trade Name Freq PRN Reason Stop Dose Admin Famotidine 20 mg 07/02/25 07:47 07/02/25 08:17 Famotidine 10 Mg/Ml Inj IVP 07/02/25 07:48 20 mg ONCE ONE Administration Lidocaine/Aluminum/Magnesium/Simeth 30 ml 07/02/25 07:47 07/02/25 08:17 Gi Cocktail (Visc Lido/Antacid) 30 Ml PO 07/02/25 07:48 30 ml ONCE ONE Administration <Jesus Chao MD - Last Filed: 07/02/25 08:54> MDM - Abdominal Pain MDM Narrative Medical decision making narrative: Addendum 8:53 a.m.: The patient feels better, her lab studies look reassuring. She has some Gas-X and some other antacid she can try at home. Recommend rest observation. Her pain is gotten better. Return as needed. Recommend follow up with regular doctor in the next few days. <Jesus Chao MD - Last Filed: 07/02/25 08:54> Lab Data Labs: Lab Results 07/02/25 Range/Units 08:15 WBC 4.28 L (4.50-11.00) K/uL RBC 3.45 L (4.00-5.20) m/uL Hgb 13.1 (12.0-16.0) gm/dL Hct 32.1 L (33.0-51.0) % MCV 93 (80-100) fL MCH 38 H (26-34) pg MCHC 41 H (32-36) gm/dL RDW Coeff of Adam 13.8 (11.5-15.5) % Plt Count 272 (140-440) K/uL Neut % (Auto) 82.5 H (42.0-72.0) % Lymph % (Auto) 10.3 L (20-44) % [place] % (Auto) 6.5 (0.0-11.0) % Eos % (Auto) 0.2 (0.0-7.0) % Baso % (Auto) 0.5 (0.0-3.0) % Neut # (Auto) 3.50 (1.7-7.0) K/uL Lymph # (Auto) 0.40 L (0.90-2.90) K/uL [place] # (Auto) 0.30 (0.00-0.90) K/UL Eos # (Auto) 0.00 (0.00-0.50) K/uL Baso # (Auto) 0.00 (0.00-0.30) K/uL Abs Immat Gran (auto) 0.00 (0.00-0.30) K/uL Imm/Tot Granulo (auto) 0.0 % Sodium 132 L (135-149) mmol/L Potassium 4.5 (3.6-5.1) mmol/L Chloride 95 L (96-114) mmol/L Carbon Dioxide 25 (20-32) mmol/L Anion Gap 12 (7-15) mEq/L BUN 13 (7-30) mg/dL Creatinine 0.9 (0.5-1.5) mg/dL Estimated Creat Clear 48.25 Estimated GFR 72 ml/min Glucose 93 (60-115) mg/dL Calcium 9.8 (8.4-10.6) mg/dL Total Bilirubin 1.1 (0.1-1.5) mg/dL Direct Bilirubin 0.2 (0.0-0.5) mg/dL AST 38 H (12-35) U/L ALT 22 (4-35) U/L Alkaline Phosphatase 77 (40-150) U/L Total Protein 7.6 (6.0-8.3) g/dL Albumin 4.6 (3.3-5.0) g/dL Lipase 90 (23-300) U/L <Jw Malloy MD - Last Filed: 07/07/25 15:57> Lab Results 07/02/25 Range/Units 08:15 WBC 4.28 L (4.50-11.00) K/uL RBC 3.45 L (4.00-5.20) m/uL Hgb 13.1 (12.0-16.0) gm/dL Hct 32.1 L (33.0-51.0) % MCV 93 (80-100) fL MCH 38 H (26-34) pg MCHC 41 H (32-36) gm/dL RDW Coeff of Adam 13.8 (11.5-15.5) % Plt Count 272 (140-440) K/uL Neut % (Auto) 82.5 H (42.0-72.0) % Lymph % (Auto) 10.3 L (20-44) % [place] % (Auto) 6.5 (0.0-11.0) % Eos % (Auto) 0.2 (0.0-7.0) % Baso % (Auto) 0.5 (0.0-3.0) % Neut # (Auto) 3.50 (1.7-7.0) K/uL Lymph # (Auto) 0.40 L (0.90-2.90) K/uL [place] # (Auto) 0.30 (0.00-0.90) K/UL Eos # (Auto) 0.00 (0.00-0.50) K/uL Baso # (Auto) 0.00 (0.00-0.30) K/uL Abs Immat Gran (auto) 0.00 (0.00-0.30) K/uL Imm/Tot Granulo (auto) 0.0 % Sodium 132 L (135-149) mmol/L Potassium 4.5 (3.6-5.1) mmol/L Chloride 95 L (96-114) mmol/L Carbon Dioxide 25 (20-32) mmol/L Anion Gap 12 (7-15) mEq/L BUN 13 (7-30) mg/dL Creatinine 0.9 (0.5-1.5) mg/dL Estimated Creat Clear 48.25 Estimated GFR 72 ml/min Glucose 93 (60-115) mg/dL Calcium 9.8 (8.4-10.6) mg/dL Total Bilirubin 1.1 (0.1-1.5) mg/dL Direct Bilirubin 0.2 (0.0-0.5) mg/dL AST 38 H (12-35) U/L ALT 22 (4-35) U/L Alkaline Phosphatase 77 (40-150) U/L Total Protein 7.6 (6.0-8.3) g/dL Albumin 4.6 (3.3-5.0) g/dL Lipase 90 (23-300) U/L <Jesus Chao MD - Last Filed: 07/02/25 08:54> Discharge Plan Discharge Clinical Impression: Generalized abdominal pain <Jw Malloy MD - Last Filed: 07/07/25 15:57> Patient Disposition: Home, Self-Care <Jw Malloy MD - Last Filed: 07/07/25 15:57> Condition: Improved <Jw Malloy MD - Last Filed: 07/07/25 15:57> Additional Instructions: Light activity, antacid as needed, follow up with regular doctor next 2-3 days. Light diet for today and then may restart return to normal diet tomorrow doing better. <Jw Malloy MD - Last Filed: 07/07/25 15:57> Activity Level: Light activity <Jw Malloy MD - Last Filed: 07/07/25 15:57> Light activity <Jesus Chao MD - Last Filed: 07/02/25 08:54> Discharge Diet: Full Liquid <Jw Malloy MD - Last Filed: 07/07/25 15:57> Full Liquid <Jesus Chao MD - Last Filed: 07/02/25 08:54> Prescriptions: No Action sennosides [senna] 8.6 mg tablet 8.6 mg PO BID PRN (Reason: constipation) omeprazole 20 mg capsule,delayed release(DR/EC) 20 mg PO QPM mometasone 0.1 % cream 1 applic topical BID melatonin 3 mg tablet 5 mg PO DAILY PRN (Reason: insomnia) fluoxetine 40 mg capsule 40 mg PO DAILY famotidine 20 mg tablet 20 mg PO DAILY epinephrine 0.3 mg/0.3 mL auto-injector 0.3 ml subcut .prn hydrochlorothiazide 12.5 mg tablet 12.5 mg PO DAILY bisacodyl 10 mg suppository 10 mg MO DAILY PRN (Reason: constipation) alum-mag hydroxide-simeth [Tania-Lanta] 200-200-20 mg/5 mL suspension 15 ml PO Q6H PRN Acid Gone Antacid E.Strength 160-105 mg tablet,chewable 1 tab PO QID PRN (Reason: heartburn) Excedrin Extra Strength 250-250-65 mg tablet 2 tab PO Q8H PRN omeprazole 40 mg capsule,delayed release(DR/EC) 40 mg PO DAILY Qty: 20 2RF <Jw Malloy MD - Last Filed: 07/07/25 15:57> Follow Up/Referrals: Provider,Not a Local [Primary Care Provider, Family Practice] <Jw Malloy MD - Last Filed: 07/07/25 15:57> Stand Alone Forms: MyHealth Info Instructions <Jw Malloy MD - Last Filed: 07/07/25 15:57>
[2025-07-02 07:25] VITALS: BP 178/87; PULSE 86; RESP 18; TEMP 36.6; O2SAT 100; BMI 21.8
[2025-07-02 07:32] VITALS: BP 178/87; PULSE 86; RESP 18; TEMP 36.6; O2SAT 100
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
--- OUTSIDE RECORDS SUMMARY | 2025-07-02 08:02 | XMS_ITS ---
Author Organization [facility] Address [address] [place] [address] Care Team Providers Care Thread Reeler Name Role Phone China Cortés P.A.-C. Primary Care Pro vider Active Problems * This document contains information received from the source organization and may not represent a complete record from that organization. Problem Noted Date Diagnosed Date Hyperlipidemia 10/05/2024 Cancer Breast Ductal In Situ Right 09/28/2024 Partial Intestinal Obstruction Unspecified As To Cause 03/08/2024 Overview (03/16/2024): Hospital[facility] at [facility] February 2024. Gastroesophageal Reflux Disease Without Esophagi tis 01/27/2024 Constipation 01/27/2024 Hypertension Essential Primary 07/09/2023 Cancer Breast Family History 05/22/2023 Overview (03/17/2024): Mom, grandma, sister. Follows with Breast Clinic in [place]. Cyst Finger 02/12/2023 Overview (02/12/2023): Added automatically from request for surgery [id number] History Of Falling 08/02/2020 Moderate Or Severe Use Disor kylee (Dependence) Alcohol Remission 11/23/2019 Overview (11/23/2024): History of heavy alcohol use several years ago. Patient reports being sober since Sep 2024. 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 Past Treatment and Therapy Plans No past plan information found. Past Radiation Episodes * Proton Beam: Right BreastOverview* First Treatment Date Last Treatment Date Treatment Site Technique Goal Episode Provider 12/21/2024 12/28/2024 Right Breast Proton Beam Curative * Linked Problems Cancer Breast Ductal In Situ Right Treatment Courses* Course [id number] 12/21/2024 - 12/28/2024 Treatment Period Fraction Dose Fractions Total Dose Plans Planned [id number] 12/21/2024 - 12/28/2024 520 cGy 5 / 5 2 ,600 cGy Reference Points Delivered [id number] 12/21/2024 - 12/28/2024 2,600 cGy Lifetime Dose Tracking * Chemical Lifetime Dose Automatic Entry Manual Entr y Radiation 32.063 mGy 32.063 mGy 0 mGy Fluoro Time 2.483 minutes 2.483 minutes 0 minutes Treatment Summaries Cancer Breast Ductal In Situ Right* Images from the original note were not included. Your Survivorship Care Plan Provided on 05/05/2025 General Information Patient name Moraima Fernandes Phone There are no phone numbers on file. Date of 1960 Introduction This is your personal survivorship care plan. It is both a summary of your treatment history as well as a follow-up plan to guide you through the management of your continued medical care. The plan was developed by a multidisciplinary team of [place] cancer providers to help you understand, discuss, and plan post-treatment needs with your healthcare providers, including your primary care team. It includes detailed medical information regarding your treatment as well as information relating to potential shorter and long-term side-effects post-treatment. What is Survivorship? The most widely used definition of survivorship care involves the following elements: 1. Prevention of recurrent and new cancers, and of other late effects; 2. Surveillance for cancer spread, recurrence, or second cancers; assessment of medical and psychosocial late effects; 3. Intervention for consequences of cancer and its treatment, for example: medical problems such aslymphedema and sexual dysfunction; symptoms, including pain and fatigue; psychological distress experienced by cancer survivors and their caregivers; and concerns related to employment, insurance, and disability; and 4. Coordination between specialists and primary care providers to ensure that all of the survivors health needs are met. Care Team Afshan Granados M.D. (Breast Clinic) Ness Mackenzie APRN, C.N.P. (Breast Clinic) Judith Avila M.D. (Breast Surgery) Lia Jackson M.D. (Radiation Oncology) Cancer Diagnosis and Staging Information Diagnosis Cancer Breast Ductal In Situ Right Diagnosis date 09/28/2024 Staging information Cancer Staging Stage 0 10/14/2024: Pathologic Stage Classification (AJCC, 8th edition) TNM Descriptors: Not applicable pT Category: pTis (DCIS) Regional Lymph Nodes Modifier: Not applicable pN Category: pN not assigned (no nodes submitted) pM Category: Not applicable Additional Pathologic Findings: Atypical ductal hyperplasia, fibrocystic changes, biopsy site changes Special Studies: ER/GA+ Background Information Genetics: Declined Family history Cancer-related family history includes Breast cancer in her maternal grandmother, mother, and sister. Social History Alcohol use reports that she does not currently use alcohol. Tobacco use reports that she quit smoking about 21 months ago. Her smoking use included cigarettes.She started smoking about 4 years ago. She has a 0.8 pack- year smoking history. She has been exposed to tobacco smoke. She has never used smokeless tobacco. Treatment Summary Breast Cancer Oncology History Oncology History Cancer Breast Ductal In Situ Right 09/02/2024 Critical Imaging EXAM: BI BREAST SCREENING BILATERAL WITH TOMOSYNTHESIS Current study was evaluated with a Computer Aided Detection (CAD) system. INDICATION: Screening mammogram. COMPARISON: Prior exam(s) were available and reviewed for comparison. DENSITY: c. The breast(s) are heterogeneously dense, which may obscure small masses. FINDINGS: No mammographic findings of malignancy in the left breast. Calcifications posterior depthouter right breast for which additional imaging is recommended. IMPRESSION: Incomplete. Need additional imaging evaluation. RECOMMENDATION: Additional Imaging Diagnostic imaging evaluation. The [facility] will contact the patient and schedule the indicated additional imaging. 09/04/2024 Critical Imaging EXAM: BI BREAST DIAGNOSTIC RIGHT WITH TOMOSYNTHESIS INDICATION: Abnormal screening mammogram COMPARISON: Prior exam(s) were available and reviewed for comparison. DENSITY: c. The breast(s) are heterogeneously dense, which may obscure small masses. FINDINGS: Coarse heterogenous and pleomorphic small group of calcifications in the outer right breast at posterior depth measure approximately 8 mm. IMPRESSION: Suspicious small group of calcifications in the right breast. RECOMMENDATION: Biopsy Recommend stereotactic biopsy of the suspicious calcifications in the right outer breast. Findings and recommendations were discussed with the patient who is agreeable with the plan. 09/09/2024 Biopsy/Pathology Right breast biopsy: Ductal carcinoma in-situ, low nuclear grade, cribriform and solid type with necoris and calcifications. Atypical lobular hyperplasia, 3 or more foci. ER 91-100% (positive) GA 91-100% (positive) 10/14/2024 Surgery and Procedures Right breast lumpectomy Tumor: low grade ductal carcinoma in situ, 10mm in greatest dimension Microcalcifications: present Necrosis: present Margins: negative to 4mm Lymph nodes: not evaluated Pathologic stage: pTis 10/30/2024 - Biological/Targeted/Hormone Therapy Post op consult with Dr. Granados: After discussing the different antiestrogen options as well as the benefits and drug side effects Moraima shared with me that she is not interested in taking the antiestrogen medications from the drug side effects. She will be due for a bilateral 3D screening mammogram in August 2025. 12/21/2024 - 12/28/2024 Radiation Therapy Treatment area: right partial breast Modality: proton Total dose given: 2600 cGy (RBE 1.1) Number of fractions: 5 Radiation Therapy Treatment Details (12/21/2024 - 12/28/2024) Site: Right Breast Technique: Proton Beam Goal: Curative Planned Treatment Start Date: 12/21/2024 Schedule of Surveillance Testing and Visits The basis for the surveillance testing schedule and test recommendations in this section are largely based on guidelines from the [place] [employer] On[employer] (ASCO), the biggest cancer society regarding clinical practice. -Physical examinations should be performed every 3 to 6 months for the first 3 years, every 6 to 12months for years 4 and 5, and annually thereafter. -Monthly breast and/or chest wall self examinations. -Women who have undergone breast conserving surgery should have a post treatment mammogram 1 year after the initial mammogram and at least 6 months after completion of radiation therapy. Thereafter, unless otherwise indicated, a yearly mammographic evaluation should be performed. Surveillance visits How often: Every 6 months for 3-5 years and then annually With Who: Breast Clinic Additional information: Imaging (mammograms) How often Diagnostic mammogram annually; consider dense breast imaging with MBI (molecular breast imaging) every other year in addition to mammogram Where: [facility] Additional information: Due in August 2025. Follow-up care with your Primary Care Physician (PCP) Follow-up care with your primary care physician is recommended for age- appropriate cancer screenings, for monitoring blood pressure, cholesterol, blood sugar, weight, and for other medical conditions. Long- term Side effects Possible late and long-term effects of cancer treatment can include bone thinning, menopausal symptoms, and nerve damage. Please talk to your care team about ways to manage these side effects. Side Effects from Radiation Therapy Side effects from radiation therapy tend to build up; they may affect you more toward the end of your radiation treatment. Side effects usually lessen over time after radiation treatment ends. Common side effects include the following: Fatigue is the most common side effect of radiation therapy. Try to plan for this possibility by limiting your extra activities so that you can rest whenever you feel the need. Sometimes putting yourfeet up for 15 to 20 minutes can help you feel rested. Your skin near the radiation site may feel as if it were sunburned. It may be itchy, red, shiny, sore or swollen and may peel or blister. For some women, sensation at the radiation site may increase or it may decrease. -You may have swelling, pain, or tenderness in the breast. -Your breast may become tender, darker, firmer or smaller from radiation therapy. -You also may have a feeling of heaviness in the breast. These changes may be permanent. More serious, long-term complications are rare but they can occur. These include rib fractures, lung inflammation, nerve damage and injury to the heart. In extremely rare cases, a new tumor may result from radiation therapy. If you receive radiation after a mastectomy with immediate reconstruction,you may be at higher risk for healing problems and for the reconstruction to fail, and you may needmore surgery. How your breast looks may not be as good as it would have been had you not received radiation. If you experience or have concerns about the side effects of radiation therapy, talk with your health care provider. Symptoms of Recurrence In addition, please contact your healthcare provider with any new symptoms that may signify a breast cancer recurrence including lumps or skin changes on your breast or chest wall, pain that lasts more than a few weeks, difficulty breathing, or unintentional weight loss. Understand the Emotional Impact After cancer treatment, you may feel your life has changed in some ways that are hard to explain. It may seem hard to get back to ???normal.?? It is common for people who have had cancer to feel many emotions, including anxiety, depression, anger, grief or guilt. These are reasonable responses to a big health change. To help handle these emotions, you may need to decide what ???normal?? means to you after all the changes you have gone through. Doing this may help you find a new way to live that brings you more fran and meaning. If you feel emotionally overwhelmed after your cancer treatment, tell your health care provider. She or he may be able to connect you with a support group or other support services. Your health care provider may also offer you treatment choices for specific concerns or refer to you a mental health p rofessional. * Anxiety Anxiety is a common emotion among people who have had cancer. Fear of cancer coming back often causes anxiety. Because of this, follow-up testing can be stressful. Other common sources of anxiety include job issues, concerns about money or relationships, and worries about the physical effect of cancer treatment. What you can do -Talk about your worries with someone you trust. -Try stress management tools, such as meditation, prayer and regular exercise. -Learn the signs that may tell you your cancer has returned. Learn what you can do to lower your cancer risk. -Focus on the healthy choices you can make in areas of your life that you can control. If anxiety makes your daily life difficult, see your health care provider. * Depression After cancer treatment, you may have many different feelings as you think about what you have been through. Some of these feelings may not be positive. That is normal. However, negative feelings thatstay with you for more than two weeks or get in the way of your daily life can be signs of depression. If this happens to you, talk to your health care provider. Symptoms of depression include: -Sadness -Hopelessness -Loss of interest in activities -Irritability -Difficulty Sleeping -Change in appetite -Difficulty concentrating -Problems thinking clearly * Anger Many cancer survivors feel a sense of anger. Cancer may change many parts of your life, including relationships, school, work, and residential plans. Anger is a normal response to those changes. What you can do? It is important to express your anger in a healthy way. Talk about the way you are feeling with someone you trust. Think about whether you can talk with: -Friends -Family members -Other people who have been through cancer -A professional counselor -Your health care provider Fatigue Some cancer survivors report that they still feel tired or worn out. In fact, fatigue is one of themost common complaints during the first year of recovery. Rest or sleep does not cure the type of fatigue that you may have. Doctors do not know its exact causes. The causes of fatigue are different for people who are receiving treatment than they are for those who have finished. Fatigue during treatment can be caused by cancer therapy. Other problems can also play a part in fatigue, like anemia (having too few red blood cells) or having a weak immune system. Poor nutrition, not drinking enoughliquids, and depression can also be causes. Pain can make fatigue worse. Researchers are still learning about what may cause fatigue after treatment. How long will fatigue last? There is no normal pattern. For some, fatigue gets better over time. Some people may still feel energy loss years later. Some people feel very frustrated when fatigue lasts longer than they think it should and when it gets in the way of their normal routine. They may also worry that their friends, family, and coworkers will get upset with them if they continue to show signs of fatigue. Getting Help Talk with your doctor or nurse about what may be causing your fatigue and what can be done about it. Ask about: -How many medicines you are taking or other medical problems you have might affect your energy level -How you can control your pain, if pain is a problem for you -Exercise programs that might help, such as walking -Relaxation exercises -Changing your diet or drinking more fluids -Medicines or nutritional supplements that can help -Specialists who might help you, such as physical therapists, occupational therapists, forming yardage control operator, or mental health care providers Coping With Fatigue Here are some ideas: -Plan your day. Be active at the time of day when you feel most alert and energetic. -Save your energy by changing how you do things. For example, sit on a stool while you cook or washdishes. -Take short naps or rest breaks between activities. -Try to go to sleep and wake up at the same time every day. -Do what you enjoy, but do less of it. Focus on old or new interests that don???t tire you out. Forexample, try to read something brief or listen to music. -Let others help you. They might cook a meal, run errands, or do the laundry. If no one offers, askfor what you need. Friends and family might be willing to help but may not know what to do. -Choose how to spend your energy. Try to let go of things that don???t matter as much now. -Think about joining a support group. Talking about your fatigue with others who have had the same problem may help you find new ways to cope. Sexual Changes Sexuality is part of being human. Love, affection and intimacy all play a role in healthy relationships. Cancer and its treatments may change the way you view your body and your ability to be intimate with your partner. What you can do: -After treatment, ask your health care provider about sexual changes you can expect. -Be open and communicate with your partner about your feelings, concern and needs. You may need to find new ways to be intimate and to express your love. -Talk with your health care provider about any concerns you may have. You also may find it helpful to speak with a provider who specializes in sexuality. Spiritual issues A cancer diagnosis may change your spirituality. You may find it to be stronger and deeper and fromthe challenges you have overcome, or you may feel abandoned and struggle with the question Why me? What you can do - Take time to think about your spirituality. Try to find a sense of peace within your own spiritual framework. -Talk with your spiritual or hunting sales leader to help guide you through some of the questions raised by your illness. -Consider using the [facility] staff at [facility] to help you with your spiritual questions. Changes in Weight and Eating Habits Some survivors who have had certain kinds of chemotherapy or medicines have problems with weight gain. Sometimes the added pounds stay on even when treatment ends. Breast cancer survivors who have had certain types of chemotherapy gain weight in a different way--they may lose muscle and gain fat tissue. Unfortunately, the usual ways people try to lose weight may not work for them. Try to be patient with yourself. Look for the positive things that you can control, such as eating a healthy diet. Try to focus on the fact that treatment is over, and you are trying to get stronger with time. Some cancer survivors have the opposite problem: they have no desire to eat, and they lose weight. Some men say that weight loss or loss of muscle tone is a bigger concern for them than weight gain. It makes them feel less strong and like less of a man. Managing a Healthy Weight For weight issues, ask your doctor or nurse about: -Doing strength-building exercises, if you have lost muscle or gained fat tissue -Talking to a dietitian or hotel maintenance engineer who can help you plan a healthy diet that won???t add extrapounds Regaining a Lost Appetite Here are some tips that have helped others improve their appetites: -Start with small meals. Five small meals a day may be easier to manage than three larger ones. -Focus on your favorite foods. If the thought of eating still lacks appeal, try the foods you really liked before treatment to jump-start your appetite. Try adding some fresh fruit, juice, or other flavoring to improve the taste. -Stay active. A short walk before a meal can help you feel hungry. Wellness Recommendations: Healthy food choices include a wide variety of fruits, vegetables, whole grains, poultry, and fish while minimizing refined grains, processed and red meats, desserts, and high?fat dairy products. Exercise after cancer treatment improves quality of life, fatigue, mood, muscle strength, and physical functioning. It also decreases the risk of cancer recurrence and the risk of cardiovascular disease. Work up to exercising 30 minutes/day at least 5 days/week, and strive to achieve a healthy weight (BMI 18.5?25). Alcohol use is linked to the risk of breast cancer recurrence. Minimize alcohol, and if you drink, do not drink more than 1 alcoholic beverage per day (5 oz of wine, 12 oz of beer, or 1 ounce of liquor). For some specific cancer types, alcohol use may increase the risk of recurrence; please talk with your provider. Tobacco use may also increase your risk of cancer recurrence or a new cancer. The [facility] can help you. Appointments can be conducted in person, by video or over the telephone. You can call [phone] (toll-free) or email [email or web address] to schedule an appointment. To learn more about the services the [facility] can provide, please visit [facility] Stress management tools such as meditation, prayer, and breathing exercises may be helpful. If you develop feelings of worry, anxiety, sadness, or hopelessness that persist for > 2 weeks, talk to a health care provider. Sleep is important for healing and well-being. Most adults require 7?9 hours of sleep/night. If youare having difficulty sleeping, talk to your provider . Back to Work Going back to work can be a challenging transition after cancer treatment. If you have questions about employment, ask your health care provider to refer you to a [facility] social economist. He or shecan give you workplace information. Americans with Disabilities Act If you believe that your physical function is temporarily or permanently affected by cancer or its treatment, you should know about the Americans with Disabilities Act, or ADA. ADA bans discrimination against qualified employees with disabilities who can perform the essential functions of their job, with or without reasonable accommodations. Cancer survivors who return to work are due any reasonable change or adjustment in their work environment that allows a person with a disability to have equal opportunities. A social economist can help you look at your situation and the Americans with Disabilities Act Genetic testing and employment Sometimes cancer diagnosis and treatment involves genetic testing. This information becomes a part of your medical record. It is against the law for an employer to discriminate against a job applicant or a current or former employee because of genetic information. 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
--- OUTSIDE RECORDS SUMMARY | 2025-07-02 08:02 | XMS_ITS | Clinical Summary ---
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 used in interpretation. COMPARISON FILM: Yes 01/13/15 [facility] 11/24/12 [facility] FINDINGS: Mammographically, the breast tissue is heterogeneously dense, which could obscure detection of small masses. There are no dominant masses, suspicious micro calcifications or areas of architectural distortion. us Mila Peters MD MAMMO Final Result * ANTI HCV [[id number]] (01/11/2014 2:06 PM KNITTED GOODS SHAPER) ANTI HCV Non-reacti ve [facility] Blood specimen (specimen) BLOOD SPECIMEN / Unknown 01/11/2014 2:06 PM [employer] SH[employer]ER 01/11/2014 1:59 PM [employer]ITTED [employer] SHAPER us Natty Ravi MD SEND OUTS Final Result [facility] LABORATORY INTERNAL ZIP [address] [address] [facility] [place] [address] from Last 3 Months or Most Recently Relevant to Health Maintenance Insurance MEDICARE PART A HB ONLY [facility] PART B HB ONLY Advance Directives * Full Code (Latest Code Status on File) Date Activated Date Inactivated Comments 07/27/2024 1:55 PM 07/30/2024 3:28 PM Question Answer Comments Code Status Discussion: Reviewed Preferences * Full Code Date Activated Date Inactivated Comments 03/08/2024 6:26 AM 03/11/2024 1:00 PM Question Answer Comments Code Status Discussion: Reviewed Preferences * Full Code Date Activated Date Inactivated Comments 11/17/2022 4:04 PM 11/18/2022 4:48 PM Question Answer Comments Code Status Discussion: Reviewed Preferences * Full Code Date Activated Date Inactivated Comments 10/31/2022 5:43 AM 11/02/2022 8:39 PM Question Answer Comments Code Status Discussion: Reviewed Preferences * Full Code Date Activated Date Inactivated Comments 10/02/2022 8:58 AM 10/02/2022 3:32 PM Question Answer Comments Code Status Discussion: Reviewed Preferences Care Teams Thread Winder Relationship Specialty Start Date End Date China Cortés PA-C [address] [place] [phone] PCP - General Physician Line Patrolman 07/07/23 Heather Ralph V, [facility] [address], [place] [address] Contract Recruiter Police Inspector 01/01/17 Staff, Other Clinical . Nurse Clinician 02/26/18
--- OUTSIDE RECORDS SUMMARY | 2025-07-02 08:02 | XMS_ITS | Encounter Summary ---
Author Organization [facility] Address [address] [place] [address] Care Team Providers Care Deputy Manager Name Role Phone China Cortés, P.A.-C. Primary Care Pro vider Reason for Visit * Reason Comments Med Refill Encounter Details Date Type Department Care Team (Late st Contact Info) Description 06/15/2025 Refill Department of Community Internal Medicine in [place], [place] [address] [place] [phone] China Cortés MPAS, P.A.-C. [address] [place] [phone] Med Refill Social History Tobacco Use Types Packs/Day Years Used Date Smoking Tobacco: Former Cigarettes 0.3 3 0 07/12/2020 - 07/12/2023 Passive Smoke Exposure: Past Smokeless Tobacco: Never Alcohol Use Standard Drinks/Week Comments Not Currently [...] your living situation today? I have a [facility] place to live 05/07/2023 Education Answer Date Recorded What is the highest level of school you have completed or the highest degree you have received? 12th grade 09/27/2020 Comments No Sex and Gender Information Value Date Recorded Sex Assigned at Not on file Legal Sex Female 9:31 PM AFTER SCHOOL COUNSELOR Gender Identity Female 09/24/2017 12:18 PM AFTER SCHOOL COUNSELOR Sexual Orientation Not on file documented as of this encounter Plan of Treatment Upcoming Encounters Date Type Department Care Team (Latest Contact Info) Description 08/11/2025 8:20 AM CDT Clinical Communication Virtual Review in [address] [phone] 08/12/2025 10:15 AM CDT Appointment Department of Radiology in [address] [phone] Tameka Vazquez APRN, C.N.P., M.P.H., M.S.N. [address] [place] [phone] Discharge Disposition: Home or Self Care 2025 12:30 PM CDT Office Visit Breast Diagnostic Clinic in [address] [phone] Tameka Vazquez APRN, C.N.P., M.P.H., M.S.N. [address] [place] [phone] 2025 1:50 PM CDT Appointment Department of Radiology in [place], [place] [address] [place] [phone] Tameka Vazquez APRN, C.N.P., M.P.H., M.S.N. [address] [place] [address] Discharge Disposition: Home or Self Care documented as of this encounter Visit Diagnoses Not on filedocumented in this encounter Additional Health Concerns Assessment Noted Time PHQ-9 Depression Total Score: 0 09/15/20 2:31 PM AFTER SCHOOL COUNSELOR documented as of this encounter Care Teams Deputy Manager Relationship Specialty Start Date End Date China Cortés MPAS, P.A.-C. [address] [place] [phone] PCP - General Internal Medicine 05/25/24 documented as of this encounter
--- OUTSIDE RECORDS SUMMARY | 2025-07-02 08:02 | XMS_ITS | Encounter Summary ---
Author Organization [facility] Address [address] [place] [address] Care Team Providers Care Inside Sales Name Role Phone China Cortés, P.A.-C. Primary Care Pro vider Reason for Visit * Reason Onset Date Comments Med Refill 06/18/2025 Encounter Details Date Type Department Care Team (Late st Contact Info) Description 06/18/2025 Refill Department of Community Internal Medicine in [place], [place] [address] [place] [phone] China Cortés MPAS, P.A.-C. [address] [place] [phone] Med Refill Social History Tobacco Use Types [...] your [facility] situation today? [facility] 05/07/2023 Education Answer Date Recorded What is the highest level of school you have completed or the highest degree you have received? 12th grade 09/27/2020 Comments No Sex and Gender Information Value Date Recorded Sex Assigned at Not on file Legal Sex Female 9:31 PM OPERATION SHIFT SUPERVISOR Gender Identity Female 09/24/2017 12:18 PM OPERATION SHIFT SUPERVISOR Sexual Orientation Not on file documented as of this encounter Miscellaneous Notes * Telephone Encounter - Radha Cleary R.N. - 06/22/2025 9:17 AM CDT SUBJECTIVE CHIEF COMPLAINT / REASON FOR CALL Med Refill Information Discussed Patient stated she is not currently having constipation symptoms, she has had recent bowel movements and is taking her Senna. She would just like to have an enema on hand in case she has issues in the future as this is common for her. PLAN Disposition/Recommendation: notified provider and awaiting recommendations Information/Education: patient/caller able to teach back Caller agreeable to plan of care: yes The following references were used: nursing clinical judgement * Telephone Encounter - Carmella Davenport E - 06/18/2025 1:20 PM CDT Images from the original note were not included. Needs Review: Med Refill Team is unable to forward request to provider. Discrepancy; Request is not on the current med list. Primary Provider: TERI Davidson PBelgica documented in this encounter Plan of Treatment Upcoming Encounters Date Type Department Care Team (Latest Contact Info) Description 08/11/2025 8:20 AM CDT Clinical Communication Virtual Review in [address] [phone] 08/12/2025 10:15 AM CDT Appointment Department of Radiology in [address] [phone] Tameka Vazquez APRN, C.N.PJean-Pierre, M.P.H., M.S.N. [address] [place] [phone] Discharge Disposition: Home or Self Care 2025 12:30 PM CDT Office Visit Breast Diagnostic Clinic in [address] [phone] Tameka Vazquez APRN, C.N.P., M.P.H., M.S.N. [address] [place] [phone] 2025 1:50 PM CDT Appointment Department of Radiology in [address] [phone] Tameka Vazquez APRN C.N.PJean-Pierre, M.P.H., M.S.N. [address] [place] [phone] Discharge Disposition: Home or Self Care documented as of this encounter Visit Diagnoses Not on filedocumented in this encounter Additional Health Concerns Assessment Noted Time PHQ-9 Depression Total Score: 0 09/15/20 24 2:31 PM OPERATION SHIFT SUPERVISOR documented as of this encounter Care Teams Inside Sales Relationship Specialty Start Date End Date China Cortés MPAS, P.A.-C. [address] [facility] [place] [phone] PCP - General Internal Medicine 05/25/24 documented as of this encounter
--- OUTSIDE RECORDS SUMMARY | 2025-07-02 08:03 | XMS_ITS | Encounter Summary ---
Author Organization [facility] Address [address] [place] [address] Care Team Providers Care Spray Ii Painter Name Role Phone China Cortés, P.A.-C. Primary Care Pro vider Reason for Visit * Reason Comments Med Refill Encounter Details Date Type Department Care Team (Late st Contact Info) Description 06/18/2025 Refill Department of Community Internal Medicine in [place], [place] [address] [place] [phone] China Cortés MPAS, P.A.-C. [address] [place] [phone] Med Refill Social History Tobacco Use Types [...] your living situation today? I have a [facility] place to live 05/07/2023 Education Answer Date Recorded What is the highest level of school you have completed or the highest degree you have received? 12th grade 09/27/2020 Comments No Sex and Gender Information Value Date Recorded Sex Assigned at Not on file Legal Sex Female 9:31 PM CITY DIRECTOR Gender Identity Female 09/24/2017 12:18 PM CITY DIRECTOR Sexual Orientation Not on file documented as of this encounter Plan of Treatment Upcoming Encounters Date Type Department Care Team (Latest Contact Info) Description 08/11/2025 8:20 AM CDT Clinical Communication Virtual Review in [address] [phone] 08/12/2025 10:15 AM CDT Appointment Department of Radiology in [address] [phone] Tameka Vazquez APRN, C.N.P., M.P.H., M.S.N. [address] [place] [phone] Discharge Disposition: Home or Self Care 2025 12:30 PM CDT Office Visit Breast Diagnostic Clinic in [address] [phone] Tameka Vazquez APRN, C.N.P., M.P.H., M.S.N. [address] [place] [phone] 2025 1:50 PM CDT Appointment Department of Radiology in [place], [place] [address] [place] [address] Tameka Vazquez APRN, C.N.P., M.P.H., M.S.N. [address] [place] [phone] Discharge Disposition: Home or Self Care documented as of this encounter Visit Diagnoses Not on filedocumented in this encounter Additional Health Concerns Assessment Noted Time PHQ-9 Depression Total Score: 0 09/15/20 2:31 PM CITY DIRECTOR documented as of this encounter Care Teams Spray Ii Painter Relationship Specialty Start Date End Date China Cortés MPAS, P.A.-C. [address] [place] [phone] PCP - General Internal Medicine 05/25/24 documented as of this encounter
--- OUTSIDE RECORDS SUMMARY | 2025-07-02 08:03 | XMS_ITS ---
Author Organization [facility] ter Care Team Providers Care Nail Setter Name Role Phone Chyna Carmella Unavailable Unavailable Andres Monzon Unavailable Unavailable Allergies and adverse reactions Code CodeSystem Substance Reaction Severity StartDate Concern Status Tylenol Unknown Unknown active 5640 RXNORM Ibuprofen Unknown Unknown active 3423 RXNORM Hydromorphone Unknown Unknown active Care Team Name Role Address Phone Organization Dates Andres Monzon PCP [facility] [address] [facility], [address], [place], [address], [place] (Office): [facility] 01/19/2017 - 02/01/2017 Carmella Clemente [facility] [address] [facility] [address], [place], [facility], [place] States (Office): : [facility] 01/19/2017 - 02/01/2017 Immunizations Immunization Status Vaccine Details Vaccine Code CodeSystem Date Notes TB 2 Step Mantoux Skin Test completed tuberculin skin test; unspecified formulation lotNumber: [id number] expiry: 09/07/2018 Mfg: Sanofi P[employer]ur Given 0.1 ml Left Forearm intradermally Step 1 of Multi-step with next step required 98 CVX created date: 01/24/2017 consent date: 01/25/2017 administer ed date: 01/20/2017 Educated by Miriam Jacobs RN on 01/20/2017 Consent received at facility on 01-20 Pneumovax 23 completed pneumococcal polysaccharide vaccine, 23 valent lotNumber: [id number] expiry: 04/01/2018 Mfg: merchsharp Given 0.5 ml [...] Concern Status 1 CONSTIPATION, UNSPECIFIED 02/02/[address] active 2 INFLUENZA DUE TO OTHER IDENTIFIED INFLUENZA VIRUS WITH OTHER RESPIRATORY MANIFESTATIONS 02/01/[address] active 3 ANEMIA, UNSPECIFIED 01/31/[address] active 4 AFTERCARE FOLLOWING JOINT REPLACEMENT SURGERY 01/20/[address] active 5 DIFFICULTY IN WALKING, NOT ELSEWHERE CLASSIFIED 01/20/[address] active 6 GASTRO-ESOPHAGEAL REFLUX DISEASE WITHOUT ESOPHAGITIS 01/20/[address] active 7 IRRITABLE BOWEL SYNDROME, UNSPECIFIED 01/20/[address] active 8 MAJOR DEPRESSIVE DISORDER, SINGLE EPISODE, UNSPECIFIED 01/20/[address] active 9 MUSCLE WEAKNESS (GENERALIZED) 01/20/[address] active 10 NICOTINE DEPENDENCE, CIGARETTES, UNCOMPLICATED 01/20/[address] active 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 01/20/[address] active 12 PNEUMONIA, UNSPECIFIED ORGANISM 01/20/20 17 01/26/[address] completed 13 PRESENCE OF RIGHT ARTIFICIAL HIP JOINT 01/20/[address] active Reason for Referral No Reasons for Referral Entered Social History Social History Observation Description Start Date End Date Code Code System Current Smoking Status Ex-smoker Not available Not available 1390287 SNOMED CT Sex Assigned At Female 1960 25766-1 [facility] Gender Identity Vital Signs Code Code System Vitals Name Values and Units Timing Information 75412-3 [facility] Pain Level Value=7.0 02/01/2017 8310-5 [facility] Body Temperature Value=96.8 Units= F 02/01/2017 9279-1 [facility] Respiratory Rate Value=18.0 Units=/m in 02/01/2017 8462-4 [facility] Blood Pressure-Diastolic Value=68 Un its=mmHg 02/01/2017 8480-6 [facility] Blood Pressure-Systolic Bsaaq=332 Un its=mmHg 02/01/2017 8867-4 [facility] Heart rate Value=73.0 Units=/min 32358-7 [facility] O2 % BldC Oximetry Value=98.0 Units= % 02/01/2017 04848-4 [facility] Weight Nnpod=731.5 Units=Lbs 8302-2 [facility] Height Value=64.0 Units=Inches 01/20/2017
--- OUTSIDE RECORDS SUMMARY | 2025-07-02 08:03 | XMS_ITS | Encounter Summary ---
Author Organization [facility] Address [address] [place] [address] Care Team Providers Care Charger Name Role Phone China Cortés P.A.-C. Primary Care Pro vider Reason for Referral * Outpatient (Routine) - Authorized Specialty Diagnoses / Procedures Referred By Wyatt roland Referred To Contact Diagnoses Dense Breasts, Unspecified Procedures NM Molecular Breast Imaging Tameka Vazquez APRN, C.N.P., M.P.H., M.S.N. [address] [place] [phone] Phone: tel: fax: [facility] Referral ID Status Reason Start Date Expiration Date V isits Requested Visits Authorized [id number] Authorized 05/12/2025 08/12/2026 8 8 * Outpatient (Routine) - Authorized Specialty Diagnoses / Procedures Referred By Wyatt roland Referred To Contact Diagnoses Cancer Breast Family History Procedures BI Breast Diagnostic Bilateral with Tomosynthesis Tameka Vazquez APRN, C.N.Iqra, M.P.H., M.S.N. [address] [place] [phone] Phone: tel: fax: [facility] Referral ID Status Reason Start Date Expiration Date V isits Requested Visits Authorized [id number] Authorized 05/12/2025 08/12/2026 1 1 Encounter Details Date Type Department Care Team (Late st Contact Info) Description 05/11/2025 Clinical Communication Breast Diagnostic Clinic in [place], [place] [address] [place] [address] Tameka Vazquez APRN, C.N.P., Jose Luis.IqraH., M.S.N. [address] [place] [phone] Social History Tobacco Use Types Packs/Day Years [...] your living situation today? I have a [facility] place to live 05/07/2023 Education Answer Date Recorded What is the highest level of school you have completed or the highest degree you have received? 12th grade 09/27/2020 Comments No Sex and Gender Information Value Date Recorded Sex Assigned at Not on file Legal Sex Female 9:31 PM DISTRICT RANGER Gender Identity Female 09/24/2017 12:18 PM DISTRICT RANGER Sexual Orientation Not on file documented as of this encounter Miscellaneous Notes * Telephone Encounter - Rip Cid - 05/11/2025 2:24 PM CDT Breast Clinic follow-up recommendations: Follow up with Breast Clinic in August 2025. Please call 3 months in advance for scheduling purposes (pink reminder card given). Perform regular breast/chest wall examination. Report any breast/chest wall changes and/or persistent concerning symptoms. Clinical breast exams every 6 months for 3-5 years, then annually thereafter. Annual bilateral diagnostic mammogram. Due August 2025. Optional molecular breast imaging for supplemental screening of dense breast tissue every 2 years in addition to annual mammograms. Planning MBI in August 2025. documented in this encounter Plan of Treatment Upcoming Encounters Date Type Department Care Team (Latest Contact Info) Description 08/11/2025 8:20 AM CDT Clinical Communication Virtual Review in [place], [place] [address] [place] [phone] 08/12/2025 10:15 AM CDT Appointment Department of Radiology in [place], [place] [address] [place] [phone] Tameka Vazquez APRN, C.N.P., M.P.H., M.S.N. [address] [place] [phone] Discharge Disposition: Home or Self Care 2025 12:30 PM CDT Office Visit Breast Diagnostic Clinic in [place], [place] [address] [place] [phone] Tameka Vazquez APRN, C.N.P., M.P.H., M.S.N. [address] [place] [phone] 2025 1:50 PM CDT Appointment Department of Radiology in [place], [place] [address] [place] [address] Tameka Vazquez APRN, C.N.P., M.P.H., M.S.N. [address] [place] [address] Discharge Disposition: Home or Self Care Scheduled Orders Name Type Priority Associated Diagnoses Orde r Schedule BI Breast Diagnostic Bilateral with Tomosynthesis Imaging RAD - Routine (most inpatients and all outpatients) Cancer Breast Family History Expected: 2025, Expires: 08/11/2026 NM Molecular Breast Imaging Imaging RAD - Routine (most inpatients and all outpatients) Dense Breasts, Unspecified Expected: 08/12/2025, Expires: 08/11/2026 documented as of this encounter Visit Diagnoses Diagnosis Dense Breasts, Unspecified- Primary Cancer Breast Family History documented in this encounter Additional Health Concerns Assessment Noted Time PHQ-9 Depression Total Score: 0 09/15/20 24 2:31 PM DISTRICT RANGER documented as of this encounter Care Teams Charger Relationship Specialty Start Date End Date China Cortés MPAS, P.A.-C. [address] [place] [phone] PCP - General Internal Medicine 05/25/24 documented as of this encounter
--- OUTSIDE RECORDS SUMMARY | 2025-07-02 08:15 | XMS_ITS | CCD ---
Author Organization Unknown Care Team Providers Care Small Engine Mechanic Name Role Phone Embossing Machine Operator, [place] Primary Care Provider Unava ilable Unavailable Chronic Care Management Unavaila ble Summary Purpose DataExchange Insurance Providers Payer name Policy type / Coverage type Covered democrat ID Effective Begin Date Effective End Date [employer] Commercial Insurance [id number] 2021 Unkn own Family History Family History data not found Medication Administered No Medication Administered data Reason For Visit No Reason For Visit data
[2025-07-02] MEDS: GI COCKTAIL (VISC LIDO/ANTACID) 30 ML PO (08:17)
[2025-07-02] MEDS: FAMOTIDINE 10 MG/ML inj 20 MG IVP (08:17)
[2025-07-02 08:24] LABS: Hematocrit 32.1 % (33.0-51.0); Hemoglobin* 13.1 gm/dL (12.0-16.0); Immature Granulocytes Abs Auto 0.00 K/uL (0.00-0.30); Immature Granulocytes Pct Auto 0.0 %; Mean Corpuscular HGB Conc 41 gm/dL (32-36); Mean Corpuscular Hemoglobin 38 pg (26-34); Mean Corpuscular Volume 93 fL (80-100); RDW Coefficient of Variation % 13.8 % (11.5-15.5); Red Blood Count 3.45 m/uL (4.00-5.20); White Blood Count* 4.28 K/uL (4.50-11.00)
[2025-07-02 08:25] LABS: Lymphocytes Absolute Auto 0.40 K/uL (0.90-2.90); Slide Review Reflex No
[2025-07-02 08:38] LABS: Albumin* 4.6 g/dL (3.3-5.0); Chloride* 95 mmol/L (96-114); Potassium* 4.5 mmol/L (3.6-5.1); Sodium* 132 mmol/L (135-149)
[2025-07-02 08:40] LABS: Alanine Aminotransferase* 22 U/L (4-35); Anion Gap 12 mEq/L (7-15); Aspartate Amino Transferase* 38 U/L (12-35); Blood Urea Nitrogen* 13 mg/dL (7-30); Carbon Dioxide* 25 mmol/L (20-32); Creatinine* 0.9 mg/dL (0.5-1.5); Est. Creatinine Clearance* 48.25; Estimated Glomerular Filt Rate 72 ml/min
[2025-07-02 08:41] LABS: Alkaline Phosphatase* 77 U/L (40-150); Bilirubin Direct* 0.2 mg/dL (0.0-0.5); Bilirubin Total* 1.1 mg/dL (0.1-1.5); Calcium* 9.8 mg/dL (8.4-10.6); Glucose* 93 mg/dL (60-115); Total Protein* 7.6 g/dL (6.0-8.3)
--- OUTSIDE RECORDS SUMMARY | 2025-07-02 09:02 | XMS_ITS | CCD ---
Author Organization Unknown Care Team Providers Care Bonding Molder Name Role Phone Atomizer Assembler, [place] Primary Care Provider Unava ilable Unavailable Chronic Care Management Unavaila ble Summary Purpose DataExchange Insurance Providers Payer name Policy type / Coverage type Covered democrat ID Effective Begin Date Effective End Date [employer] Commercial Insurance [id number] 2021 Unkn own Family History Family History data not found Medication Administered No Medication Administered data Reason For Visit No Reason For Visit data
--- OUTSIDE RECORDS SUMMARY | 2025-07-02 09:02 | XMS_ITS | CCD ---
Author Organization Unknown Care Team Providers Care Cushion Stuffer Name Role Phone Leather Polisher, [place] Primary Care Provider Unava ilable Unavailable Chronic Care Management Unavaila ble Summary Purpose DataExchange Insurance Providers Payer name Policy type / Coverage type Covered republican ID Effective Begin Date Effective End Date [employer] Commercial Insurance [id number] 2021 Unkn own Family History Family History data not found Medication Administered No Medication Administered data Reason For Visit No Reason For Visit data
[2025-07-02 09:11] VITALS: BP 161/79; PULSE 85; RESP 18; TEMP 37.1
--- NOTE | 2025-07-02 11:27 | PC.SOCIAL ---
Metabolic Specialist: terrazzo worker apprentice secure emailed pt's ED documentation note to Norma Agudelo with [facility], [email or web address], per her request as the pt has an open APS case with [facility]. Social work to follow-up as needed.
== END 2025-07-02 09:15 | disposition home or self-care (01) ==
PROVIDERS: Emergency Provider Family Medicine
DX: R10.9 Unspecified abdominal pain (principal)
CPT/HCPCS: 36415; 80048; 80076; 83690; 85025; 96374; 99284; 99285; A9270; J1308

== ENCOUNTER 2025-07-12 23:04 | Emergency (ER) | payer MEDICARE, SELFPAY ==
[2025-07-12 23:06] VITALS: BP 183/124; PULSE 110; RESP 18; TEMP 36.2; O2SAT 99; BMI 22.7
--- OUTSIDE RECORDS SUMMARY | 2025-07-12 23:08 | XMS_ITS ---
Author Organization [facility] ter Care Team Providers Care Sheet Metal Apprentice Name Role Phone Clemente Carmella Unavailable Unavailable Andres Monzon Unavailable Unavailable Allergies and adverse reactions Code CodeSystem Substance Reaction Severity StartDate Concern Status Tylenol Unknown Unknown active 5640 RXNORM Ibuprofen Unknown Unknown active 3423 RXNORM Hydromorphone Unknown Unknown active Care Team Name Role Address Phone Organization Dates Andres Monzon PCP Genevive [address] [facility] [address], [address], [place], [address], [place] (Office): [facility] 01/19/2017 - 02/01/2017 Carmella Clemente Genevive [address] [facility] [address], [place], [facility], [place] States (Office): : [facility] 01/19/2017 - 02/01/2017 Immunizations Immunization Status Vaccine Details Vaccine Code CodeSystem Date Notes TB 2 Step Mantoux Skin Test completed tuberculin skin test; unspecified formulation lotNumber: [id number] expiry: 09/07/2018 Mfg: Sanofi P[employer]ur Given 0.1 ml Left Forearm intradermally Step 1 of Multi-step with next step required 98 CVX created date: 01/24/2017 consent date: 01/25/2017 administer ed date: 01/20/2017 Educated by Miriam Jacobs RN on 01/20/2017 Consent received at facility on 01-20 Pneumovax 23 completed pneumococcal polysaccharide vaccine, 23 valent lotNumber: [id number] expiry: 04/01/2018 Mfg: merchsharp Given 0.5 ml [...] Concern Status 1 CONSTIPATION, UNSPECIFIED 02/02/[address] active 2 INFLUENZA DUE TO OTHER IDENTIFIED INFLUENZA VIRUS WITH OTHER RESPIRATORY MANIFESTATIONS 02/01/[id number] active 3 ANEMIA, UNSPECIFIED 01/31/[address] active 4 AFTERCARE FOLLOWING JOINT REPLACEMENT SURGERY 01/20/[address] active 5 DIFFICULTY IN WALKING, NOT ELSEWHERE CLASSIFIED 01/20/[address] active 6 GASTRO-ESOPHAGEAL REFLUX DISEASE WITHOUT ESOPHAGITIS 01/20/[address] active 7 IRRITABLE BOWEL SYNDROME, UNSPECIFIED 01/20/[address] active 8 MAJOR DEPRESSIVE DISORDER, SINGLE EPISODE, UNSPECIFIED 01/20/[address] active 9 MUSCLE WEAKNESS (GENERALIZED) 01/20/[address] active 10 NICOTINE DEPENDENCE, CIGARETTES, UNCOMPLICATED 01/20/[address] active 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 01/20/[address] active 12 PNEUMONIA, UNSPECIFIED ORGANISM 01/20/20 17 01/26/[address] completed 13 PRESENCE OF RIGHT ARTIFICIAL HIP JOINT 01/20/[address] active Reason for Referral No Reasons for Referral Entered Social History Social History Observation Description Start Date End Date Code Code System Current Smoking Status Ex-smoker Not available Not available 0246852 SNOMED CT Sex Assigned At Female 1960 97993-6 [facility] Gender Identity Vital Signs Code Code System Vitals Name Values and Units Timing Information 71304-8 [facility] Pain Level Value=7.0 02/01/2017 8310-5 [facility] Body Temperature Value=96.8 Units= F 02/01/2017 9279-1 [facility] Respiratory Rate Value=18.0 Units=/m in 02/01/2017 8462-4 [facility] Blood Pressure-Diastolic Value=68 Un its=mmHg 02/01/2017 8480-6 [facility] Blood Pressure-Systolic Fjujq=215 Un its=mmHg 02/01/2017 8867-4 [facility] Heart rate Value=73.0 Units=/min 31612-6 [facility] O2 % BldC Oximetry Value=98.0 Units= % 02/01/2017 07295-6 [facility] Weight Yxouu=331.5 Units=Lbs 8302-2 [facility] Height Value=64.0 Units=Inches 01/20/2017
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
[2025-07-12 23:12] VITALS: PULSE 111; O2SAT 99
--- NOTE | 2025-07-12 23:22 | ED.ABDPAIN ---
HPI - Abdominal Pain General Chief Complaint: Abdominal Pain Stated Complaint: stomach pain Time Seen by Provider: 07/12/25 23:05 History of Present Illness HPI narrative: This 64-year-old female comes in with upper epigastric abdominal pain and nausea. She states that she went to sleep and prior to this had 4 beers. She awoke with upper epigastric abdominal pain. She got up and lost her balance and did bump her nose but did not have loss of consciousness or other injury. She has a history of alcohol abuse and history of generalized and chronic abdominal pain. Prior to this she states she was feeling normal. Related Data Home Medications ?Medication ?Instructions ?Recorded ?Confirmed aluminum hydrox-magnesium carb 160 1 tab PO QID PRN heartburn 03/04/25 07/12/25 mg-105 mg chewable tablet (Acid Gone Antacid Extra Strength) aluminum-mag hydroxide-simethicone 15 ml PO Q6H PRN 03/04/25 07/12/25 200 mg-200 mg-20 mg/5 mL oral susp (Tania-Lanta) sdgtuqk-auxkjftabzpjo-xkajjmmb 250 2 tab PO Q8H PRN 03/04/25 07/12/25 mg-250 mg-65 mg tablet (Excedrin Extra Strength) bisacodyl 10 mg rectal suppository 10 mg CO DAILY PRN constipation 03/04/25 07/12/25 epinephrine 0.3 mg/0.3 mL 0.3 ml subcut .prn anaphylaxis 03/04/25 07/12/25 injection, auto-injector famotidine 20 mg tablet 20 mg PO DAILY 03/04/25 07/12/25 fluoxetine 40 mg capsule 40 mg PO DAILY 03/04/25 07/12/25 hydrochlorothiazide 12.5 mg tablet 12.5 mg PO DAILY 03/04/25 07/12/25 melatonin 3 mg tablet 5 mg PO DAILY PRN insomnia 03/04/25 07/12/25 omeprazole 20 mg capsule,delayed 20 mg PO QPM 03/04/25 07/12/25 release sennosides 8.6 mg tablet (senna) 8.6 mg PO BID PRN constipation 03/04/25 07/12/25 Previous Rx's ?Medication ?Instructions ?Recorded omeprazole 40 mg capsule,delayed 40 mg PO DAILY #20 caps 03/04/25 release Allergies Allergy/AdvReac Type Severity Reaction Status Date / Time acetaminophen Allergy Unknown Verified 07/12/25 23:12 bee venom protein (honey bee) Allergy Unknown Verified 07/12/25 23:12 hydromorphone Allergy Unknown Verified 07/12/25 23:12 ibuprofen Allergy Unknown Verified 07/12/25 23:12 Influenza Virus Vaccines Allergy Unknown Verified 07/12/25 23:12 NSAIDS (Non-Steroidal Allergy Unknown Verified 07/12/25 23:12 Anti-Inflamma olanzapine Allergy Unknown Verified 07/12/25 23:12 Review of Systems Status of ROS Reports: 10 or more systems reviewed and unremarkable except as noted in History and below Narrative Constitutional: No fevers, no weight gain or loss. Eyes: No discharge. No vision changes. HENT: No congestion, no sore throat, no ear pain. Cardiovascular: No chest pain, no palpitations. Respiratory: No shortness of breath, no wheezes, no cough. Gastrointestinal: No diarrhea. Upper epigastric abdominal pain. Nausea and vomiting. Genitourinary: No dysuria, no hematuria. Musculoskeletal: Normal range of motion. Skin: No rashes, no pruritis. Neurological: No dizziness, weakness, sensory change, speech change. Endo/Heme/Allergies: No bruising or bleeding. No polydipsia. Pysch: no suicidality, no anxiety, no insomnia. All other systems reviewed and are negative. [facility] Social History Smoking Status: Never smoker Do you use any of these nicotine containing products: None Second hand tobacco smoke exposure: No How often do you have a drink containing alcohol: monthly or less How many standard drinks containing alcohol do you have on a typical day: 1 or 2 AUDIT-C Alcohol total score: 1 Non-prescribed substance use: denies use service: No Exam Narrative: Exam Narrative: Constitutional: Well-developed, well-nourished, no acute distress. HEENT: Normocephalic, atraumatic. Neck: Normal range of motion. Nontender. Supple. Heart: Regular. No murmurs. Mild tachycardia. Intact distal pulses. Lungs: Clear to auscultation. No chest discomfort. No wheezes, rhonchi, or rales. Abdomen: Normal bowel sounds. Tenderness in the upper epigastric region. No rebound tenderness. Genitalia: Deferred. Back: No midline tenderness. Normal range of motion. Extremities: Normal range of motion. No injury. Skin: Intact. No rash. Warm. No erythema or pallor. Neurologic: No altered sensation. No weakness. Alert and oriented. Nursing notes and vitals signs are reviewed. Const: Vital Signs, click to edit/add: Vital Signs - 24 hr 07/12/25 23:06 07/12/25 23:12 Temperature 97.2 F L Pulse Rate 111 H Pulse Rate [Pulse Oximeter] 110 H Respiratory Rate 18 Blood Pressure [Ri ght Upper Arm] 183/124 H Pulse Oximetry 99 99 Oxygen Delivery Me thod Room Air Room Air Course Vital Signs Vital signs: Initial Vital Signs Temperature 97.2 F L 07/12/25 23:06 Temperature Source Temporal Artery Scan 07/12/25 23:06 Pulse Rate 110 H 07/12/25 23:06 Respiratory Rate 18 07/12/25 23:06 Blood Pressure 183/124 H 07/12/25 23:06 Blood Pressure Mean 143 H 07/12/25 23:06 Blood Pressure Position Supine 07/12/25 23:06 Pulse Oximetry 99 07/12/25 23:06 Oxygen Delivery Method Room Air 07/12/25 23:06 Vital Signs Temperature 97.2 F L 07/12/25 23:06 Pulse Rate 110 H 07/12/25 23:06 Respiratory Rate 18 07/12/25 23:06 Blood Pressure 183/124 H 07/12/25 23:06 Pulse Oximetry 99 07/12/25 23:06 Oxygen Delivery Method Room Air 07/12/25 23:06 Temperature 97.2 F L 07/12/25 23:06 Pulse Rate 111 H 07/12/25 23:12 Respiratory Rate 18 07/12/25 23:06 Blood Pressure 183/124 H 07/12/25 23:06 Pulse Oximetry 99 07/12/25 23:12 Oxygen Delivery Method Room Air 07/12/25 23:12 Medications Administered Medications: Generic Name Dose Route Start Last Admin Trade Name Freq PRN Reason Stop Dose Admin Lidocaine/Aluminum/Magnesium/Simeth 30 ml 07/12/25 23:21 07/12/25 23:34 Gi Cocktail (Visc Lido/Antacid) 30 Ml PO 07/12/25 23:22 30 ml ONCE ONE Administration Ondansetron HCl 4 mg 07/12/25 23:21 07/12/25 23:34 Ondansetron Odt 4 Mg Tab PO 07/12/25 23:22 4 mg ONCE ONE Administration MDM - Abdominal Pain MDM Narrative Medical decision making narrative: This patient has a history of chronic and recurrent abdominal pain and comes in with such symptoms today. She was not having any abdominal pain and then awoke with severe pain according to the patient. She also reported some vomiting. She arrives here with normal vital signs but does have some tachycardia. At rest her heart rate normalized. The patient has normal bowel sounds and has diffuse tenderness in the upper epigastric region. I did initially try oral doses of GI cocktail and Zofran in an attempt to treat symptoms of a gastritis. The patient did not report any relief from these medications. She does have an IV in place so labs are acquired and I did order IV fluids and 2 mg of morphine. The patient has allergy reported to NSAIDs and Dilaudid. These results are pending at the end of my shift and care is transferred to the overnight MD, Dr. Farah. Discharge Plan Discharge Clinical Impression: Abdominal pain Prescriptions: No Action sennosides [senna] 8.6 mg tablet 8.6 mg PO BID PRN (Reason: constipation) omeprazole 20 mg capsule,delayed release(DR/EC) 20 mg PO QPM melatonin 3 mg tablet 5 mg PO DAILY PRN (Reason: insomnia) fluoxetine 40 mg capsule 40 mg PO DAILY famotidine 20 mg tablet 20 mg PO DAILY epinephrine 0.3 mg/0.3 mL auto-injector 0.3 ml subcut .prn hydrochlorothiazide 12.5 mg tablet 12.5 mg PO DAILY bisacodyl 10 mg suppository 10 mg CO DAILY PRN (Reason: constipation) alum-mag hydroxide-simeth [Tania-Lanta] 200-200-20 mg/5 mL suspension 15 ml PO Q6H PRN Acid Gone Antacid E.Strength 160-105 mg tablet,chewable 1 tab PO QID PRN (Reason: heartburn) hykzeuh-dmwanyvzahxfl-ejljuhjt [Excedrin Extra Strength] 250-250-65 mg tablet 2 tab PO Q8H PRN omeprazole 40 mg capsule,delayed release(DR/EC) 40 mg PO DAILY Qty: 20 2RF Follow Up/Referrals: Provider,Not a Local [Non-Staff, Family Practice]
[2025-07-12] MEDS: ONDANSETRON ODT 4 MG TAB PO (23:34)
[2025-07-12] MEDS: GI COCKTAIL (VISC LIDO/ANTACID) 30 ML PO (23:34)
--- OUTSIDE RECORDS SUMMARY | 2025-07-12 23:35 | XMS_ITS | Encounter Summary ---
Author Organization [facility] Address [address] [place] [address] Care Team Providers Care Chain Maker Name Role Phone China Cortés, P.A.-C. Primary Care Pro vider Reason for Visit * Reason Onset Date Comments Med Refill 06/18/2025 Encounter Details Date Type Department Care Team (Late st Contact Info) Description 06/18/2025 Refill Department of Community Internal Medicine in [place], [place] [address] [place] [phone] China Cortés MPAS, P.A.-C. 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 [address] [place] [phone] Discharge Disposition: Home or Self Care 2025 12:30 PM CDT Office Visit Breast Diagnostic Clinic in [address] [phone] Tameka Vazquez APRN, C.N.P., M.P.H., M.S.N. [address] [place] [phone] 2025 1:50 PM CDT Appointment Department of Radiology in [address] [phone] Tameka Vazquez APRN C.N.PJean-Pierre, M.P.H., M.S.N. [address] [place] [phone] Discharge Disposition: Home or Self Care documented as of this encounter Visit Diagnoses Not on filedocumented in this encounter Additional Health Concerns Assessment Noted Time PHQ-9 Depression Total Score: 0 09/15/20 24 2:31 PM GUN SYNCHRONIZER documented as of this encounter Care Teams Chain Maker Relationship Specialty Start Date End Date China Cortés MPAS, P.A.-C. [address] [facility] [place] [phone] PCP - General Internal Medicine 05/25/24 documented as of this encounter
--- OUTSIDE RECORDS SUMMARY | 2025-07-12 23:35 | XMS_ITS | Encounter Summary ---
Author Organization [facility] Address [address] [place] [address] Care Team Providers Care Safety Person Name Role Phone China Cortés, P.A.-C. Primary Care Pro vider Reason for Visit * Reason Comments Med Refill Encounter Details Date Type Department Care Team (Late st Contact Info) Description 06/15/2025 Refill Department of Community Internal Medicine in [place], [place] [address] [place] [phone] China Cortés MPAS, P.A.-C. [address] [place] [phone] Med Refill Social History Tobacco Use Types [...] your living situation today? I have a [facility] place to live 05/07/2023 Education Answer Date Recorded What is the highest level of school you have completed or the highest degree you have received? 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 [address] [place] [phone] Discharge Disposition: Home or Self Care 2025 12:30 PM CDT Office Visit Breast Diagnostic Clinic in [address] [phone] Tameka Vazqeuz APRN, C.N.P., M.P.H., M.S.N. [address] [place] [phone] 2025 1:50 PM CDT Appointment Department of Radiology in [place], [place] [address] [place] [address] Tameka Vazquez APRN, C.N.P., M.P.H., M.S.N. [address] [place] [address] Discharge Disposition: Home or Self Care documented as of this encounter Visit Diagnoses Not on filedocumented in this encounter Additional Health Concerns Assessment Noted Time PHQ-9 Depression Total Score: 0 09/15/20 2:31 PM DRYWALL FINISHER FOREMAN documented as of this encounter Care Teams Safety Person Relationship Specialty Start Date End Date China Cortés MPAS, P.A.-C. [address] [place] [phone] PCP - General Internal Medicine 05/25/24 documented as of this encounter
--- OUTSIDE RECORDS SUMMARY | 2025-07-12 23:35 | XMS_ITS ---
Author Organization [facility] Address [address] [place] [address] Care Team Providers Care Assembler Show Motor Name Role Phone China Cortés P.A.-C. Primary Care Pro vider Active Problems * This document contains information received from the source organization and may not represent a complete record from that organization. Problem Noted Date Diagnosed Date Hyperlipidemia 10/05/2024 Cancer Breast Ductal In Situ Right 09/28/2024 Partial Intestinal Obstruction Unspecified As To Cause 03/08/2024 Overview (03/16/2024): Hospitalized at [facility] February 2024. Gastroesophageal Reflux Disease Without Esophagi tis 01/27/2024 Constipation 01/27/2024 Hypertension Essential Primary 07/09/2023 Cancer Breast Family History 05/22/2023 Overview (03/17/2024): Mom, grandma, sister. Follows with Breast Clinic in [place]. Cyst Finger 02/12/2023 Overview (02/12/2023): Added automatically from request for surgery [id number] History Of Falling 08/02/2020 Moderate Or Severe [...] previously been in Adult foster care with [facility] appoint guardian 2012- 2013 - now living [...] Fraction Dose Fractions Total Dose Plans Planned [id number] 12/21/2024 - 12/28/2024 520 cGy 5 / 5 2 ,600 cGy Reference Points Delivered [id number] 12/21/2024 - 12/28/2024 2,600 cGy Lifetime Dose [...] was developed by a multidisciplinary team of [place] cancer providers to help you understand, discuss, [...] fibrocystic changes, biopsy site changes Special Studies: ER/MO+ Background Information Genetics: Declined Family history Cancer-related [...] RECOMMENDATION: Additional Imaging Diagnostic imaging evaluation. The [place] [facility] Department will contact the patient and [...] 3 or more foci. ER 91-100% (positive) MO 91-100% (positive) 10/14/2024 Surgery and Procedures Right [...] are largely based on guidelines from the [place] Society of Clinical Oncology (ASCO), the biggest [...] other year in addition to mammogram Where: [facility] Additional information: Due in August 2025. Follow-up [...] your life, including relationships, school, work, and care home plans. Anger is a normal response to [...] you, such as physical therapists, occupational therapists, garbage pick up man, or mental health care providers Coping With [...] spiritual framework. -Talk with your spiritual or senior project leader/team lead to help guide you through some of the questions raised by your illness. -Consider using the Sales Professional staff at [facility] to help you with your spiritual questions. [...] fat tissue -Talking to a dietitian or hide dyer who can help you plan a healthy [...] cancer recurrence or a new cancer. The [facility] can help you. Appointments can be conducted in person, by video or over the telephone. You can call [phone] (toll-free) or email [email or web address] to schedule an appointment. To learn more [...] care provider to refer you to a [facility] social sciences professor. He or shecan give you workplace information. [...] disability to have equal opportunities. A social sciences professor can help you look at your situation [...]
--- OUTSIDE RECORDS SUMMARY | 2025-07-12 23:35 | XMS_ITS | Encounter Summary ---
Author Organization [facility] Address [address] [place] [address] Care Team Providers Care Medical Office Supervisor Name Role Phone China Cortsé P.A.-C. Primary Care Pro vider Reason for Referral * Outpatient (Routine) - Authorized Specialty Diagnoses / Procedures Referred By Wyatt roland Referred To Contact Diagnoses Dense Breasts, Unspecified Procedures NM Molecular Breast Imaging Tameka Vazquez APRN, C.N.P., M.P.H., M.S.N. [address] [place] [phone] Phone: tel: fax: [facility] Referral ID Status Reason Start Date Expiration Date V isits Requested Visits Authorized [id number] Authorized 05/12/2025 08/12/2026 8 8 * Outpatient (Routine) - Authorized Specialty Diagnoses / Procedures Referred By Wyatt roland Referred To Contact Diagnoses Cancer Breast Family History Procedures BI Breast Diagnostic Bilateral with Tomosynthesis Tameka Vazquez APRN, C.N.Iqra, M.P.H., M.S.N. [address] [place] [phone] Phone: tel: fax: [facility] Referral ID Status Reason Start Date Expiration Date V isits Requested Visits Authorized [id number] Authorized 05/12/2025 08/12/2026 1 1 Encounter Details Date Type Department Care Team (Late st Contact Info) Description 05/11/2025 Clinical Communication Breast Diagnostic Clinic in [place], [place] [address] [place] [address] Tameka Vazquez APRN, C.N.P., Jose Luis.IqraH., M.S.N. [address] [place] [address] Social History Tobacco Use Types Packs/Day Years [...] on file Legal Sex Female 9:31 PM RAISE MINER Gender Identity Female 09/24/2017 12:18 PM RAISE MINER Sexual Orientation Not on file documented as [...] AM CDT Clinical Communication Virtual Review in [place], [place] [address] [place] [address] 08/12/2025 10:15 AM CDT Appointment Department of Radiology in [place], [place] [address] [place] [phone] Tameka Vazquez APRN, C.N.P., M.P.H., M.S.N. [address] [place] [phone] Discharge Disposition: Home or Self Care 2025 12:30 PM CDT Office Visit [facility] Clinic in [place], [place] [address] [place] [phone] Tameka Vazquez APRN, C.N.P., M.P.H., M.S.N. [address] [place] [phone] 2025 1:50 PM CDT Appointment Department of Radiology in [place], [place] [address] [place] [address] Tameka Vazquez APRN, C.N.P., M.P.H., M.S.N. [address] [place] [address] Discharge Disposition: Home or Self Care Scheduled [...] Total Score: 0 09/15/20 24 2:31 PM RAISE MINER documented as of this encounter Care Teams Medical Office Supervisor Relationship Specialty Start Date End Date China Cortés MPAS, P.A.-C. [address] [place] [phone] PCP - General Internal Medicine 05/25/24 documented as of this encounter
--- OUTSIDE RECORDS SUMMARY | 2025-07-12 23:35 | XMS_ITS ---
Author Organization [facility] Care Team Providers Care Community Engagement Specialist Name Role Phone Clemente Carmella Unavailable Unavailable Andres Monzon Unavailable Unavailable Allergies and adverse reactions Code CodeSystem Substance Reaction Severity StartDate Concern Status Tylenol Unknown Unknown active 5640 RXNORM Ibuprofen Unknown Unknown active 3423 RXNORM Hydromorphone Unknown Unknown active Care Team Name Role Address Phone Organization Dates Andres Monzon PCP Genevive [address] [facility], [address], [place], [address], [place] (Office): [facility] 01/19/2017 - 02/01/2017 Carmella Clemente Genevive [address] [facility] [address], [place], [facility] [place] States (Office): : [facility] 01/19/2017 - 02/01/2017 Immunizations Immunization Status Vaccine Details Vaccine Code CodeSystem Date Notes TB 2 Step Mantoux Skin Test completed tuberculin skin test; unspecified formulation lotNumber: [id number] expiry: 09/07/2018 Mfg: Sanofi P[employer] Given 0.1 ml Left Forearm intradermally Step 1 of Multi-step with next step required 98 CVX created date: 01/24/2017 consent date: 01/25/2017 administer ed date: 01/20/2017 Educated by Miriam Jacobs RN on 01/20/2017 Consent received at facility on 01-20 Pneumovax 23 completed pneumococcal polysaccharide vaccine, 23 valent lotNumber: [id number] expiry: 04/01/2018 Mfg: merchsharp Given 0.5 ml [...] Concern Status 1 CONSTIPATION, UNSPECIFIED 02/02/[address] active 2 INFLUENZA DUE TO OTHER IDENTIFIED INFLUENZA VIRUS WITH OTHER RESPIRATORY MANIFESTATIONS 02/01/[address] active 3 ANEMIA, UNSPECIFIED 01/31/[address] active 4 AFTERCARE FOLLOWING JOINT REPLACEMENT SURGERY 01/20/[address] active 5 DIFFICULTY IN WALKING, NOT ELSEWHERE CLASSIFIED 01/20/[address] active 6 GASTRO-ESOPHAGEAL REFLUX DISEASE WITHOUT ESOPHAGITIS 01/20/[address] active 7 IRRITABLE BOWEL SYNDROME, UNSPECIFIED 01/20/[address] active 8 MAJOR DEPRESSIVE DISORDER, SINGLE EPISODE, UNSPECIFIED 01/20/[address] active 9 MUSCLE WEAKNESS (GENERALIZED) 01/20/[address] active 10 NICOTINE DEPENDENCE, CIGARETTES, UNCOMPLICATED 01/20/[address] active 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 01/20/[address] active 12 PNEUMONIA, UNSPECIFIED ORGANISM 01/20/20 17 01/26/[address] completed 13 PRESENCE OF RIGHT ARTIFICIAL HIP JOINT 01/20/[address] active Reason for Referral No Reasons for Referral Entered Social History Social History Observation Description Start Date End Date Code Code System Current Smoking Status Ex-smoker Not available Not available 2834849 SNOMED CT Sex Assigned At Female 1960 40343-6 [facility] Gender Identity Vital Signs Code Code System Vitals Name Values and Units Timing Information 14065-9 [facility] Pain Level Value=7.0 02/01/2017 8310-5 [facility] Body Temperature Value=96.8 Units= F 02/01/2017 9279-1 [facility] Respiratory Rate Value=18.0 Units=/m in 02/01/2017 8462-4 [facility] Blood Pressure-Diastolic Value=68 Un its=mmHg 02/01/2017 8480-6 [facility] Blood Pressure-Systolic Xmsqa=374 Un its=mmHg 02/01/2017 8867-4 [facility] Heart rate Value=73.0 Units=/min 25615-3 [facility] O2 % BldC Oximetry Value=98.0 Units= % 02/01/2017 87235-3 [facility] Weight Vhwhz=443.5 Units=Lbs 8302-2 [facility] Height Value=64.0 Units=Inches 01/20/2017
--- OUTSIDE RECORDS SUMMARY | 2025-07-12 23:35 | XMS_ITS | Clinical Summary ---
Author Organization [facility] Address [address] [place] [address] Care Team Providers Care Sand Technologist Name Role Phone China Cortés P.A.-C. Primary Care Pro vider Source Comments Patient records contain information from all sites at [facility]. For routine questions regarding patient records, call [phone] during business hours, M-F 8:00 AM - 5:00 PM Central Time. Record requests for emergency care only can be directed to [phone] at any time.[facility] Allergies Active Allergy Reactions Criticality Noted Date [...] Cause 03/08/2024 Overview (03/16/2024): Hospitalized at [facility] February 2024. Gastroesophageal Reflux Disease Without Esophagi tis 01/27/2024 Constipation 01/27/2024 Hypertension Essential Primary 07/09/2023 Cancer Breast Family History 05/22/2023 Overview (03/17/2024): Mom, grandma, sister. Follows with Breast Clinic in [place]. Cyst Finger 02/12/2023 Overview (02/12/2023): Added automatically from request for surgery [id number] History Of Falling 08/02/2020 Moderate Or Severe [...] previously been in Adult foster care with [facility] appointed guardian 2012- 2013 - now living [...] Refill Department of Community Internal Medicine in [address] [phone] China Cortés MPAS, P.A.-C. Med Refill 06/18/2025 Refill Department of Community Internal Medicine in [address] [phone] China Cortés MPAS, P.A.-C. Med Refill 06/15/2025 Refill Department of Community Internal Medicine in [place], [place] [address] [place] [address] China Cortés MPAS, P.A.-C. Med Refill 05/11/2025 Clinical Communication Breast Diagnostic Clinic in [place], [place] [address] [place] [phone] Tameka Vazquez APRN, C.N.P., M.P.H., M.S.N. 05/05/2025 12:45 PM CDT Comprehensive Visit Breast Diagnostic Clinic in [place], [place] [address] [place] [phone] Ness Mackenzie, MEDHAT, C.N.P. Cancer Breast Personal History (Primary Dx); Dense Breasts, Unspecified; Radiation Therapy Personal History 05/04/2025 9:40 AM CDT Clinical Communication Virtual Review in [place], [place] [address] [place] [address] Pre-visit Intake 05/02/2025 Refill Department of Community Internal Medicine in [place], [place] [address] [place] [address] China Cortés MPAS, P.A.-C. Med Refill 04/28/2025 Refill Department of Community Internal Medicine in [place], [place] [address] [place] [address] China Cortés MPAS, P.A.-C. Med Refill 04/16/2025 2:03 PM CDT - 04/16/2025 2:51 PM CDT Hospital Encounter Department of Radiation Oncology in [place], [place] [address] [place] [phone] Lia Jackson M.D. Cancer Breast Ductal In [...] your living situation today? I have a [facility] place to live 05/07/2023 Education Answer Date Recorded What is the highest level of school you have completed or the highest degree you have received? 12th grade 09/27/2020 Comments No Sex and Gender Information Value Date Recorded Sex Assigned at Not on file Legal Sex Female 9:31 PM COLLECTION COORDINATOR Gender Identity Female 09/24/2017 12:18 PM COLLECTION COORDINATOR Sexual Orientation Not on file Last Filed Vital Signs Vital Sign Reading Time Taken Comments Blood Pressure 145/80 05/05/2025 12:17 PM CDT Pulse 85 01/22/2025 10:21 AM CDT Temperature 36.2 C (97.2 F) 01/22/2025 10:21 AM CDT Respiratory Rate 16 01/22/2025 10:21 AM CDT Oxygen Saturation 100% 11/23/2024 9:01 AM COLLECTION COORDINATOR Inhaled Oxygen Concentration - - Weight 56.1 kg (123 lb 9.1 oz) 05/05/2025 12:17 PM CDT Height 162.5 cm (5' 3.98) 05/05/2025 12:17 PM C DT Body Mass Index 21.23 05/05/2025 12:17 PM CDT Plan of Treatment Upcoming Encounters Date Type Department Care Team (Latest Contact Info) Description 08/11/2025 8:20 AM CDT Clinical Communication Virtual Review in [address] [phone] 08/12/2025 10:15 AM CDT Appointment Department of Radiology in [address] [phone] Tameka Vazquez APRN, C.N.P., M.P.H., M.S.N. [address] [place] [phone] Discharge Disposition: Home or Self Care 2025 12:30 PM CDT Office Visit Breast Diagnostic Clinic in [address] [phone] Tameka Vazquez APRN, C.N.P., M.P.H., M.S.N. [address] [place] [phone] 2025 1:50 PM CDT Appointment Department of Radiology in [address] [phone] Tameka Vazquez APRN, C.N.P., M.P.H., M.S.N. [address] [place] [phone] Discharge Disposition: Home or Self Care Health [...] this topic Medical Devices Implanted Type Area Extractor Loader And Unloader Device Identifier Shelf Expiration Date Model / Serial / Lot Hardware E.G. Pins/Screws/Ro ds Hardware e.g. pins/screws/ rods Left: Toes Clp Hrzn Ti 6 Clp Emmett - [id number] Implanted:Qty: 1 on 10/14/2024 by Judith Avila M.D. at [facility] Hardware e.g. pins/screws/ rods [facility] [id number] / / Hip Implant Hip Implant Right: Hip Procedures Procedure Name Priority Date/Time Associated Diagnosis Comments GLUCOSE, FASTING, S/P Routine 10/05/2024 11:11 AM COLLECTION COORDINATOR General Medical Examination Adult Screening Test Laboratory Screening Examination Diabetes Mellitus HCV AB SCRN W/REFLEX TO HCV PCR, S Routine 10/05/2024 11:11 AM COLLECTION COORDINATOR General Medical Examination Adult Screening Test Laboratory LIPID PANEL, S Routine 10/05/2024 11:11 AM COLLECTION COORDINATOR General Medical Examination Adult Screening Test Laboratory Screening Lipid BASIC METABOLIC PANEL, S/P Routine 10/05/2024 11:11 AM COLLECTION COORDINATOR General Medical Examination Adult Screening Test Laboratory BI BREAST SCREENING BILATERAL WITH TOMOSYNTHESIS RAD - Routine (most inpatients and all outpatients) 09/02/2024 11:10 AM CDT Cancer Breast Family History from Last 3 Months or Most Recently Relevant to Health Maintenance Results * (ABNORMAL) Lipid Panel (10/05/2024 11:11 AM COLLECTION COORDINATOR) Triglycerides 99 mg/dL 10/05/2024 1:55 PM COLLECTION COORDINATOR OWAT Comment: ----REFERENCE VALUE---- Normal: <150 mg/dL Borderline High: 150-199 mg/dL High: 200-499 mg/dL Very High: > or =500 mg/dL Cholesterol, Total 231(H) mg/dL 2023 1:55 PM COLLECTION COORDINATOR OWAT Comment: ----REFERENCE VALUE---- Desirable: < 200 mg/dL Borderline High: 200 - 239 mg/dL High: > or = 240 mg/dL Cholesterol, LDL, Calculated 151(H) mg/dL 10/05/2024 1:55 PM COLLECTION COORDINATOR OWAT Comment: ----REFERENCE VALUE---- Desirable: <100 mg/dL Above Desirable: 100-129 mg/dL Borderline High: 130-159 mg/dL High: 160-189 mg/dL Very High: >=190 mg/dL ----ADDITIONAL INFORMATION---- LDL cholesterol calculated using the Cervantes/NIH equation. Cholesterol, HDL 63 >=50 mg/dL 10/05/20 1:55 PM COLLECTION COORDINATOR OWAT Cholesterol, Non-HDL, Calculated 168(H) mg/dL 10/05/2024 1:55 PM COLLECTION COORDINATOR OWAT Comment: ----REFERENCE VALUE---- Desirable: <130 mg/dL Above Desirable: 130-159 mg/dL Borderline High: 160-189 mg/dL High: 190-219 mg/dL Very High: > or =220 mg/dL Fasting (8 HR or more) Yes 10/05/2024 11:11 AM COLLECTION COORDINATOR OWAT Blood (Blood, Venous) 10/05/2024 11:11 AM COLLECTION COORDINATOR 10/05/2024 1:08 PM COLLECTION COORDINATOR China WILLIAMSON, P.A.-C. LAB BLOOD ADD-ON Final Result [facility] [address] [place] [address], [facility] OWAT [facility] in [place] [address] [place] [address] * HCV Ab Scrn w/Reflex to HCV PCR, Serum (10/05/2024 11:11 AM COLLECTION COORDINATOR) HCV Ab Screen, S Negative Negative 10/05/2024 7:31 PM COLLECTION COORDINATOR MKTO Blood (Blood, Venous) 10/05/2024 11:11 AM COLLECTION COORDINATOR 10/05/2024 6:53 PM COLLECTION COORDINATOR Narrative [facility] - 10/05/2024 7:31 PM COLLECTION COORDINATOR Specimen Information: Specimen ID: [id number] Specimen Type: Blood Specimen Collection Start Date: 10/05/2024 11:11 AM Specimen Received Date: 10/05/2024 6:53 PM Specimen ID: [id number] Specimen Type: Blood Specimen Collection Start Date: 10/05/2024 11:11 AM Specimen Received Date: 10/05/2024 6:50 PM us China WILLIAMSON, PJean-PierreA.-C. LAB MICROBIOLOGY - BLOOD ORDERABLES Final Result Performing Organization Address [facility]/ZIP Co de Phone Number [facility] [place] [address], [facility] MKTO [facility] in [place] [address] [place] [phone] * Glucose, Fasting (10/05/2024 11:11 AM COLLECTION COORDINATOR) Glucose, P 88 70 - 100 mg/dL 10/05/2024 1:51 PM COLLECTION COORDINATOR OWAT Last Intake 21 hr 10/05/2024 1:13 PM COLLECTION COORDINATOR OWAT Blood (Blood, Venous) 10/05/2024 11:11 AM COLLECTION COORDINATOR 10/05/2024 1:07 PM COLLECTION COORDINATOR us China WILLIAMSON, P.A.-C. LAB BLOOD NON ADD -ON Final Result [facility] [address] [place] [address], [place] OWAT [facility] in [place] [address] [place] [address] * (ABNORMAL) Basic Metabolic Panel (10/05/2024 11:11 AM COLLECTION COORDINATOR) Potassium, P 4.7 3.6 - 5.2 mmol/L 10/05/2024 1:54 PM COLLECTION COORDINATOR OWAT Sodium, P 141 135 - 145 mmol/L 10/05/2024 1:54 PM COLLECTION COORDINATOR OWAT Chloride, P 105 98 - 107 mmol/L 10/05/2024 1:54 PM COLLECTION COORDINATOR OWAT Bicarbonate, P 24 22 - 29 mmol/L 10/05/2024 1:55 PM COLLECTION COORDINATOR OWAT Anion Gap, P 12 7 - 15 10/05/2024 1:55 PM COLLECTION COORDINATOR OWAT BUN (Blood Urea Nitrogen), P 23(H) 6 - 21 mg/dL 10/05/2024 1:55 PM COLLECTION COORDINATOR OWAT Creatinine 0.96 0.59 - 1.04 mg/dL 10/05/2024 1:55 PM COLLECTION COORDINATOR OWAT Estimated GFR (eGFR) 67 >=60 mL/min/BSA 10/05/2024 1:55 PM COLLECTION COORDINATOR OWAT Comment: Estimated GFR calculated using the 2020 CKD_EPI creatinine equation. Calcium, Total, P 9.6 8.8 - 10.2 mg/dL 10/05/2024 1:55 PM COLLECTION COORDINATOR OWAT Glucose, P CANCELED mg/dL 10/05/2024 1:13 PM COLLECTION COORDINATOR OWAT Comment: Duplicate test request. Result canceled by the ancillary. Blood (Blood, Venous) 10/05/2024 11:11 AM COLLECTION COORDINATOR 10/05/2024 1:08 PM COLLECTION COORDINATOR us China WILLIAMSON, P.A.-C. LAB BLOOD ADD-ON Final Result [facility] [address] [place] [address], [facility] OWAT [facility] in [place] [address] [place] [address] * (ABNORMAL) BI Breast Screening Bilateral with Tomosynthesis (09/02/2024 11:10 AM CDT) Anatomical Region Laterality Modality Breast, Breast Imaging RST L OS, Breast Imaging ARZ LOS, Breast Imaging FLA LOS Bilateral Mammography Impressions 09/02/2024 12:28 PM CDT Incomplete. Need additional imaging evaluation. RECOMMENDATION: Additional Imaging Diagnostic imaging evaluation. The [facility] will contact the patient and [...] RECOMMENDATION: Additional Imaging Diagnostic imaging evaluation. The [facility] will contactthe patient and schedule the indicated additional imaging. ASSESSMENT: BI-RADS: 0 - Incomplete: Needs Additional ImagingEvaluation. Afshan MOSS BI PROCEDURES Final Resu lt from Last 3 Months or Most Recently Relevant to Health Maintenance Insurance [facility] Advance Directives For more information, please contact: [phone] * Full Code (Latest Code Status on File) Date Activated Date Inactivated Comments 10/14/2024 11:27 AM 10/14/2024 7:08 PM Question Answer Comments Full Code: Not Discussed Due to: Not medically appropriate Care Teams Sand Technologist Relationship Specialty Start Date End Date China Cortés MPAS, P.A.-C. [address] [place] [address] [place] [address] PCP - General Internal Medicine 05/25/24
--- OUTSIDE RECORDS SUMMARY | 2025-07-12 23:36 | XMS_ITS | Encounter Summary ---
Author Organization [facility] Address [address] [place] [address] Care Team Providers Care Locomotive Switch Operator Name Role Phone China Cortés, P.A.-C. Primary Care Pro vider Reason for Visit * Reason Comments Med Refill Encounter Details Date Type Department Care Team (Late st Contact Info) Description 06/18/2025 Refill Department of Community Internal Medicine in [place], [place] [address] [place] [phone] China Cortés MPAS, P.A.-C. [address] [place] [phone] Med Refill Social History Tobacco Use Types [...] your living situation today? I have a [facility] place to live 05/07/2023 Education Answer Date Recorded What is the highest level of school you have completed or the highest degree you have received? 12th grade 09/27/2020 Comments No Sex and Gender Information Value Date Recorded Sex Assigned at Not on file Legal Sex Female 9:31 PM CASTER HELPER Gender Identity Female 09/24/2017 12:18 PM CASTER HELPER Sexual Orientation Not on file documented as of this encounter Plan of Treatment Upcoming Encounters Date Type Department Care Team (Latest Contact Info) Description 08/11/2025 8:20 AM CDT Clinical Communication Virtual Review in [address] [phone] 08/12/2025 10:15 AM CDT Appointment Department of Radiology in [address] [phone] Tameka Vazquez APRN, C.N.P., M.P.H., M.S.N. [address] [place] [phone] Discharge Disposition: Home or Self Care 2025 12:30 PM CDT Office Visit [facility] in [address] [phone] Tameka Vazquez APRN, C.N.P., M.P.H., M.S.N. [address] [place] [phone] 2025 1:50 PM CDT Appointment Department of Radiology in [place], [place] [address] [place] [phone] Tameka Vazquez APRN, C.N.P., M.P.H., M.S.N. [address] [place] [phone] Discharge Disposition: Home or Self Care documented as of this encounter Visit Diagnoses Not on filedocumented in this encounter Additional Health Concerns Assessment Noted Time PHQ-9 Depression Total Score: 0 09/15/20 2:31 PM CASTER HELPER documented as of this encounter Care Teams Locomotive Switch Operator Relationship Specialty Start Date End Date China Cortés MPAS, P.A.-C. [address] [place] [phone] PCP - General Internal Medicine 05/25/24 documented as of this encounter
[2025-07-13 00:02] VITALS: BP 151/81; PULSE 85; RESP 16; O2SAT 99
--- OUTSIDE RECORDS SUMMARY | 2025-07-13 00:07 | XMS_ITS | CCD ---
Author Organization Unknown Care Team Providers Care Manufacturing Quality Technician Name Role Phone Marketing Area Manager, [place] Primary Care Provider Unava ilable Unavailable Chronic Care Management Unavaila ble Summary Purpose DataExchange Insurance Providers Payer name Policy type / Coverage type Covered constitution party ID Effective Begin Date Effective End Date [employer] [id number] 2021 Unkn own Family History Family History data not found Medication Administered No Medication Administered data Reason For Visit No Reason For Visit data
--- OUTSIDE RECORDS SUMMARY | 2025-07-13 00:08 | XMS_ITS | CCD ---
Author Organization Unknown Care Team Providers Care Roll Skinner Name Role Phone Exchange Floor Manager, [place] Primary Care Provider Unava ilable Unavailable Chronic Care Management Unavaila ble Summary Purpose DataExchange Insurance Providers Payer name Policy type / Coverage type Covered constitution party ID Effective Begin Date Effective End Date [employer] [id number] 2021 Unkn own Family History Family History data not found Medication Administered No Medication Administered data Reason For Visit No Reason For Visit data
[2025-07-13 00:18] LABS: Albumin* 4.6 g/dL (3.3-5.0); Chloride* 94 mmol/L (96-114)
[2025-07-13 00:19] LABS: Potassium* 4.8 mmol/L (3.6-5.1); Sodium* 131 mmol/L (135-149)
[2025-07-13 00:21] LABS: Alanine Aminotransferase* 21 U/L (4-35); Anion Gap 12 mEq/L (7-15); Aspartate Amino Transferase* 37 U/L (12-35); Blood Urea Nitrogen* 11 mg/dL (7-30); Carbon Dioxide* 25 mmol/L (20-32); Creatinine* 1.0 mg/dL (0.5-1.5); Est. Creatinine Clearance* 48.25; Estimated Glomerular Filt Rate 64 ml/min; Total Protein* 7.9 g/dL (6.0-8.3)
[2025-07-13 00:22] LABS: Alkaline Phosphatase* 68 U/L (40-150); Bilirubin Direct* 0.3 mg/dL (0.0-0.5); Bilirubin Total* 0.5 mg/dL (0.1-1.5); Calcium* 9.7 mg/dL (8.4-10.6); Ethanol* 0.02 % (0.01-0.03); Glucose* 100 mg/dL (60-115)
[2025-07-13 00:32] LABS: Hematocrit 23.2 % (33.0-51.0); Hemoglobin* 12.9 gm/dL (12.0-16.0); Immature Granulocytes Abs Auto 0.01 K/uL (0.00-0.30); Immature Granulocytes Pct Auto 0.2 %; Lymphocytes Absolute Auto 1.78 K/uL (0.90-2.90); Mean Corpuscular HGB Conc 56 gm/dL (32-36); Mean Corpuscular Hemoglobin 53 pg (26-34); Mean Corpuscular Volume 95 fL (80-100); RDW Coefficient of Variation % 13.2 % (11.5-15.5); Red Blood Count 2.44 m/uL (4.00-5.20); White Blood Count* 5.30 K/uL (4.50-11.00)
[2025-07-13 00:33] LABS: Slide Review Reflex No
--- OUTSIDE RECORDS SUMMARY | 2025-07-13 00:35 | XMS_ITS | CCD ---
Author Organization Unknown Care Team Providers Care Intensive Care Anaesthetist Name Role Phone Sustainable Agriculture Specialist, [place] Primary Care Provider Unava ilable Unavailable Chronic Care Management Unavaila ble Summary Purpose DataExchange Insurance Providers Payer name Policy type / Coverage type Covered alliance party ID Effective Begin Date Effective End Date [employer] [id number] 2021 Unkn own Family History Family History data not found Medication Administered No Medication Administered data Reason For Visit No Reason For Visit data
--- OUTSIDE RECORDS SUMMARY | 2025-07-13 00:35 | XMS_ITS | CCD ---
Author Organization Unknown Care Team Providers Care Customer Account Representative Name Role Phone Nozzle Tender, [place] Primary Care Provider Unava ilable Unavailable Chronic Care Management Unavaila ble Summary Purpose DataExchange Insurance Providers Payer name Policy type / Coverage type Covered alliance party ID Effective Begin Date Effective End Date [employer] [id number] 2021 Unkn own Family History Family History data not found Medication Administered No Medication Administered data Reason For Visit No Reason For Visit data
== END 2025-07-13 02:04 | disposition home or self-care (01) ==
PROVIDERS: Emergency Medicine Emergency Medical Services; Emergency Provider Family Medicine; PCP Internal Medicine
DX: R10.9 Unspecified abdominal pain (principal); R00.0 Tachycardia, unspecified; Z79.899 Other long term (current) drug therapy
CPT/HCPCS: 36415; 80048; 80076; 82077; 83690; 85025; 96374; 99284; A9270; J2270; J7030